=== PATIENT | female | born 1970 | race Hispanic/Latino ===

== ENCOUNTER 2020-03-09 05:03 | Inpatient (IN) | payer OTHER ==
[~2020-03-09] VITALS: Ht 165.1 cm; Wt 87.2 kg
[~2020-03-09 05:03] MED LIST: ASPIR-TRIN325 MG PO; GEMFIBROZIL600 MG PO; GLIPIZIDE ER10 MG PO; HYDRALAZINE HC100 MG PO; LEVAQUIN500 MG PO; LEXAPRO20 MG PO; LOSARTAN-HCTZ1 EAC1 PO; MELOXICAM15 MG PO; METFORMIN HCL500 M1 PO; NIFEDIAC CC90 MG PO; NORCO 10MG-325MG1 EA PO; PRAVASTATIN SOD40 MG PO; VESICARE5 MG PO
[2020-03-09] MEDS ORDERED: KETOROLAC TROMETHAMINE 30 MG/ML VIAL IV STA (05:45)
[2020-03-09] MEDS ORDERED: ONDANSETRON HCL INJ 2MG/ML 2ML 2 MG/ML VIAL IV STA ×2 (05:45→10:11)
[2020-03-09] MEDS ORDERED: SODIUM CHLORIDE FLUSH 10 ML SYR INJ PRN ×2 (05:45→12:30)
[2020-03-09] MEDS ORDERED: SODIUM CHLORIDE 0.9% 1000ML 1,000 ML IV STA (05:45)
[2020-03-09] MEDS ORDERED: SODIUM CHLORIDE 0.9% 1000ML 1,000 ML ONE (05:51)
--- NOTE | 2020-03-09 05:59 | Emergency Department Note ---
History of Present Illnes History of Present Illness Chief Complaint: increased bilateral lbp pain radiating to abdomen x1 day History of Present Illness This is a 49 year old female. was doing well until 1 month ago then intermittent blbp which became constant and worse 1 day ago. h/o kidney stones Historian: Patient Arrival Mode: Car History limited by: condition of the patient Scientific Publications Editor Required: No Onset (how long ago): day(s) (1) Location: blbp Quality: start Radiation: Reports abdomen Severity: severe Onset quality: gradual Duration (how long): day(s) (1) Timing of current episode: constant Progression: worsening Chronicity: new Context: Denies recent illness, Denies recent surgery, Denies recent immobilization, Denies recent travel, Denies trauma/injury, Denies new medications, Denies hx of DVT/PE Relieving factors: none Exacerbating factors: none Associated symptoms: Reports malaise Treatments prior to arrival: none (RANDEE FOOTE) Historian: Patient Arrival Mode: Car (CATRACHO LUKE MD) Past Medical/Family History Physician Review I have reviewed the patient's past medical and family history. Any updates have been documented here. (RANDEE FOOTE) Past Medical History Recent Fever: No Clinical Suspicion of Infectio: No New/Unexplained Change in Ment: No Past Medical History: Diabetes, Kidney Stones Past Surgical History: None Other Surgery: , SCAR TISSUE REMOVAL (RANDEE FOOTE) Recent Fever: No Clinical Suspicion of Infectio: No New/Unexplained Change in Ment: No Past Medical History: Hypertension, Diabetes (IDDM), Hyperlipedemia Other Medical History: Nephrolithiasis Other Surgery: Right Ovary removed, due to a cyst (CATRACHO LUKE MD) Social History Smoking Cessation: Current every day smoker Counseling Performed: No Alcohol Use: Occasional Any Illegal Drug Use: No (RANDEE FOOTE) Smoking Cessation: Current every day smoker Counseling Performed: Yes Alcohol Use: Occasional Any Illegal Drug Use: No TB Exposure/Symptoms: No Physically hurt or threatened: No (CATRACHO LUKE MD) Family History Family history of heart diseas: No (CATRACHO LUKE MD) Other Any Pre-Existing Lines (PICC,: No (RANEDE FOOTE) Last Tetanus: unknown Any Pre-Existing Lines (PICC,: No Is patient up to date on immun: No (CATRACHO LUKE MD) Review of Systems Review of Systems Constitutional: Reports no symptoms EENTM: Reports no symptoms Cardiovascular: Reports no symptoms Respiratory: Reports no symptoms Gastrointestinal: Reports as per HPI, Reports nausea Genitourinary: Reports no symptoms Musculoskeletal: Reports as per HPI Integumentary: Reports no symptoms Neurological: Reports no symptoms Psychological: Reports no symptoms Endocrine: Reports no symptoms Hematological/Lymphatic: Reports no symptoms Review of other systems: All other systems negative (RANDEE FOOTE) Physical Exam Related Data Allergies: Coded Allergies: Olbfagg-Emj-Unf Reductase Inhibitor (Verified Allergy, 11/24/12) Triage Vital Signs Vital Signs Date Time Temp Pulse Resp B/P (MAP) Pulse Ox O2 Delivery O2 Flow Rate FiO2 03/09/20 05:14 97.3 57 18 182/89 98 Room Air Vital signs reviewed: Yes (RANDEE FOOTE) Physical Exam CONSTITUTIONAL Constitutional: Present well-developed, Present well-nourished HENT HENT: Present normocephalic, Present atraumatic, Present oropharynx clear/moist, Present nose normal HENT L/R: Present left ext ear normal, Present right ext ear normal EYES Eyes: Reports PERRL, Reports conjunctivae normal NECK Neck: Present ROM normal, Present supple PULMONARY Pulmonary: Present effort normal, Present breath sounds normal CARDIOVASCULAR Cardiovascular: Present regular rhythm, Present heart sounds normal, Present capillary refill normal, Present normal rate GASTROINTESTINAL Abdominal: Present soft, Present nontender, Present bowel sounds normal GENITOURINARY Genitourinary: Present exam deferred SKIN Skin: Present warm, Present dry MUSCULOSKELETAL Musculoskeletal: Present ROM normal, Present other (bilateral cva tenderness) NEUROLOGICAL Neurological: Present alert, Present oriented x 3, Present no gross motor or sensory deficits PSYCHOLOGICAL Psychological: Present mood/affect normal, Present judgement normal (RANDEE FOOTE) Abdominal: Present tender (diffuse abdominal tenderness, worse in the left lower abdomen;) (CATRACHO LUKE MD) Results Laboratory Lab results reviewed: Yes Laboratory comments cbc normal except wbc 12.2, bmp pending, ct abd/pelvis will be done (RANDEE FOOTE) Laboratory UA - gluc = 500 mg/dl, blo - moderate, pro - 100 mg/dl UPT - negative CBC - WBC - 12.2, H/H = 18.3/48 BMP/Liver - unable to run due to Lipemic specimen; 4 samples have been run, and they are all lipemic Lab results reviewed: Yes (CATRACHO LUKE MD) Imaging Imaging results reviewed: Yes Impressions [facility] [address] [address] Patient Name: NEEL PRIETO MR #: [id number] : 1970 Age/Sex: 49/F Req #: [id number] Adm Physician: Ordered by: RANDEE FOOTE Report #: [id number] Location: [facility] Room/Bed: Procedure: [id number] HOPD/CT ABD/PEL WO CONTRAST-HOPD Exam Date: 03/09/20 Exam Time: 0656 REPORT STATUS: Signed EXAM: CT Abdomen and Pelvis WITHOUT contrast INDICATION: Abdominal/back pain COMPARISON: None. TECHNIQUE: Abdomen and pelvis were scanned utilizing a multidetector helical scanner from the lung base to the pubic symphysis without administration of IV contrast. Absence of intravenous contrast decreases sensitivity for detection of focal lesions and vascular pathology. Coronal and sagittal reformations were obtained. Routine protocol was performed. IV CONTRAST: None ORAL CONTRAST: None COMPLICATIONS: None RADIATION DOSE: Total DLP: 1082 mGy*cm Estimated effective dose: (DLP x 0.015 x size factor) mSv CTDIvol has been reviewed. It is below the limits set by the Radiation Protocol Committee (RPC). Dose modulation, iterative reconstruction, and/or weight based adjustment of the mA/kV was utilized to reduce the radiation dose to as low as reasonably achievable. FINDINGS: LINES and TUBES: None. LOWER THORAX: Coronary artery calcifications. HEPATOBILIARY: Enlarged hypodense liver. No focal hepatic lesions. No biliary ductal dilation. GALLBLADDER: No radio-opaque stones or sludge. No wall thickening. SPLEEN: No splenomegaly. PANCREAS: No focal masses or ductal dilatation. ADRENALS: No adrenal nodules KIDNEYS/URETERS: No hydronephrosis. No solid mass lesions. Round fluid density in the mid right kidney is likely a simple cyst. No stones. GI TRACT: No abnormal distention, wall thickening, or evidence of bowel obstruction. Appendix is normal. Colonic diverticuli. PELVIC ORGANS/BLADDER: Enlarged left ovary, measures up to 6.4 cm. Urinary bladder unremarkable. Suspect small uterine fibroid. LYMPH NODES: No lymphadenopathy. VESSELS: Minimal arterial calcifications. PERITONEUM / RETROPERITONEUM: No free air or fluid. BONES: Minimal degenerative changes. SOFT TISSUES: Unremarkable. IMPRESSION: 1. Left ovarian enlargement, recommend pelvic ultrasound. Suspect uterine fibroids. 2. Hepatomegaly with hepatic steatosis. 3. Colonic diverticulosis without diverticulitis. 4. Coronary artery calcifications. Signed by: Foster Kim DO on 03/09/2020 7:40 AM Dictated By: FOSTER KIM DO 9 Transcribed By: YAMILETH on 03/09/20739 COPY TO: RANDEE FOOTE~ [address] [place] [address] Patient Name: NEEL PRIETO MR #: [id number] : 1970 Age/Sex: 49/F Req #: [id number] Adm Physician: Ordered by: CATRACHO LUKE MD Report #: [id number] Location: [facility] Room/Bed: Procedure: [id number] HOPD/US HOPD PELVIC DOPPLER LTD Exam Date: 03/09/20 Exam Time: 933 REPORT STATUS: Signed ADDENDUM #1 Of note, there is no cyst or mass associated with the left ovary. Signed by: Dalton Singleton MD on 03/09/2020 11:19 AM ORIGINAL REPORT Exam: Pelvic ultrasound. History: Enlarged left ovary Comparison: CT abdomen and pelvis of 03/09/2020 Findings: Transabdominal and endovaginal sonographic evaluation of the pelvis. The uterus is anteverted in position, measuring 8.2 x 4.3 x 7.2 cm. Endometrial stripe thickness is 4 millimeters. The right ovary is not well-visualized due to overlying bowel gas.. The left ovary measures up to 3.8 x 4.6 x 3.5 cm. Arterial and venous Doppler flow is difficult to establish. No pelvic free fluid. Impression: Enlarged left ovary with no readily detectable arterial/venous waveforms. This may represent ovarian torsion in the proper clinical setting. The above findings were discussed with Dr. LUKE on 03/09/2020 9:58 AM, who responded indicating that the communication was understood. Signed by: Dalton Singleton MD on 03/09/2020 10:04 AM Dictated By: DALTON SINGLETON MD [id number] Transcribed By: YAMILETH on 03/09/20 1004 COPY TO: CATRACHO LUKE MD~ (CATRACHO LUKE MD) Diagnostics Tests Diagnostic test(s) reviewed: Yes (CATRACHO LUKE MD) Assessment & Plan Medical Decision Making MDM signed out to dr luke (RANDEE FOOTE) MDM 08:00 am - CT scan of abd/pelvis - left ovarian enlargement, recommend pelvic USG is main findin. NO kidney stones. Pt with low back pain, radiating to both sides of the abdomen. Diffuse abdominal ttp. Plan to order a pelvic USG w/doppler to better evaluate the left ovary. Reviewed CT scan with radiologist and there are no fractures of the lumbar spine. Will try a muscle relaxant to see if it helps with her back pain, pending the pelvic USG. Updated patient and son, by phone. 10:15 - contacted by Radiology of the lack of blood flow to the left ovary, which raises concern for torsion. Will consult [facility]. Discussed with patient that this will likley require surgery. She does not have an rat culturist. 10:30 am - case discussed with Pneumatic Tube Repairer, Dr. Lou, who requested more clarification of the ovary by Radiology. We have contacted Radiologist, who is in a procedure. Awaiting call back 11:20 - Spoke with Radioligist who read the USG, and the "ovary is homogenous," with no masses or cysts. The size, is as stated. 11:25 - discussed with Dr. Mario Lou, and he is coming to the [facility] to examine the patient. 11:50 - Dr. Lou is here to examine patient 12:15 pm - Dr. Lou examined patient and performed bedside USG. The left ovary is @ 5 cm, with no cysts or masses. He is not certain that her pain is due to possible ovarian torsion. Recommend admission to the hospital for further evalu ation and close observation. Pt does have a history of kidney stones, but no stones were seen on CT abd/pelvis. She has also had a midline , which would could cause adhesions. 12:30 pm - case discussed with Dr. Bach who is agreeable to admission. He will hold off on surgical consultation, until he can evaluate. Pt is medically stable for transfer to [facility] via ambulance. (CATRACHO LUKE MD) Assessment & Plan Final Impression: (1) Acute low back pain (RANDEE FOOTE) Final Impression: (1) Abdominal pain (2) Low back pain (3) Hypertension (4) Uncontrolled diabetes mellitus (CATRACHO LUKE MD) Depart Disposition: ADMITTED (transferring to [facility]) Last Vital Signs Date Time Temp Pulse Resp B/P (MAP) Pulse Ox O2 Delivery O2 Flow Rate FiO2 03/09/20 05:14 97.3 57 18 182/89 98 Room Air (RANDEE FOOTE) Home Meds Reported Medications Insulin Regular, Human (HUMULIN R) 100 Unit/1 Ml Vial, 30 DINNER 03/09/20 Insulin Regular, Human (HUMULIN R) 100 Unit/1 Ml Vial, 20 ACL 03/09/20 Insulin Regular, Human (HUMULIN R) 100 Unit/1 Ml Vial, 15 AM 03/09/20 Fenofibrate Nanocrystallized (FENOFIBRATE) 145 Mg Tablet, 134 03/09/20 Amlodipine/Atorvastatin (AMLODIPINE-ATORVAST 5-10 MG) 1 Each Tablet, 5 03/09/20 Valsartan/Hydrochlorothiazide (Valsartan-Hctz 160-12.5 mg Tab) 1 Each Tablet 03/09/20 Insulin Degludec (Tresiba Flextouch U-100) 100 Unit/1 Ml Insuln.pen, 80 DAILY 03/09/20 Escitalopram Oxalate (LEXAPRO) 20 Mg Tablet, 20 MG PO DAILY 11/24/12 Aspirin (ASPIR-JAS) 325 Mg Tablet.dr, 325 MG PO DAILY 11/24/12 Losartan/Hydrochlorothiazide (LOSARTAN-HCTZ 100-25 MG TAB) 1 Each Tablet, 1 TAB PO DAILY 11/24/12 Discontinued Reported Medications Solifenacin Succinate (VESICARE) 5 Mg Tablet, 5 MG PO QAM 11/26/12 Levofloxacin (LEVAQUIN) 500 Mg Tablet, 500 MG PO DAILY 11/26/12 Acetaminophen/Hydrocodone* (NORCO 10MG-325MG*) 1 Ea Tab, 1 TAB PO Q4 PRN 11/26/12 Metformin Hcl (METFORMIN HCL ER) 500 Mg Tab.er.24h, 1500 MG PO HS 11/24/12 Metformin Hcl (METFORMIN HCL ER) 500 Mg Tab.er.24h, 1000 MG PO DAILY 11/24/12 Hydralazine Hcl (HYDRALAZINE HCL) 100 Mg Tablet, 100 MG PO DAILY 11/24/12 Gemfibrozil (GEMFIBROZIL) 600 Mg Tablet, 600 MG PO DAILY 11/24/12 Nifedipine (NIFEDIAC CC) 90 Mg Tablet.er, 90 MG PO DAILY 11/24/12 Glipizide (GLIPIZIDE ER) 10 Mg Tab.er.24, 10 MG PO DAILY 11/24/12 Meloxicam (MELOXICAM) 15 Mg Tablet, 15 MG PO DAILY 11/24/12 Pravastatin Sodium (PRAVASTATIN SODIUM) 40 Mg Tablet, 40 MG PO DAILY 11/24/12 RANDEE FOOTE Mar 09, 2020 05:59 CATRACHO LUKE MD Mar 09, 2020 08:10
[2020-03-09] MEDS ORDERED: SODIUM CHLORIDE 0.9% 50ML 0 ML ONE (06:14)
[2020-03-09] MEDS ORDERED: IOPAMIDOL 370 MG/ML 200 ML INFUS..BTL INJ ONE (06:14)
[2020-03-09] MEDS ORDERED: MORPHINE SULFATE INJ 4 MG/ML INJ 1ML IV STA (06:24)
[2020-03-09] MEDS ORDERED: MORPHINE SULFATE INJ 4 MG/ML INJ 1ML ONE ×2 (06:31→10:32)
[2020-03-09] MEDS ORDERED: FENOFIBRATE145 MG PO (07:02)
[2020-03-09] MEDS ORDERED: TRESIBA FL100 UNIT/1 (07:02)
[2020-03-09] MEDS ORDERED: AMLODIPINE-ATO1 EACH (07:02)
[2020-03-09] MEDS ORDERED: VALSARTAN-HCTZ1 EAC1 (07:02)
[2020-03-09] MEDS ORDERED: HUMULIN R100 UNIT/2 SQ ×3 (07:02)
--- NOTE | 2020-03-09 07:43 | Diagnostic Imaging Report ---
EXAM: CT Abdomen and Pelvis WITHOUT contrast INDICATION: Abdominal/back pain COMPARISON: None. TECHNIQUE: Abdomen and pelvis were scanned utilizing a multidetector helical scanner from the lung base to the pubic symphysis without administration of IV contrast. Absence of intravenous contrast decreases sensitivity for detection of focal lesions and vascular pathology. Coronal and sagittal reformations were obtained. Routine protocol was performed. IV CONTRAST: None ORAL CONTRAST: None COMPLICATIONS: None RADIATION DOSE: Total DLP: 1082 mGy*cm Estimated effective dose: (DLP x 0.015 x size factor) mSv CTDIvol has been reviewed. It is below the limits set by the Radiation Protocol Committee (RPC). Dose modulation, iterative reconstruction, and/or weight based adjustment of the mA/kV was utilized to reduce the radiation dose to as low as reasonably achievable. FINDINGS: LINES and TUBES: None. LOWER THORAX: Coronary artery calcifications. HEPATOBILIARY: Enlarged hypodense liver. No focal hepatic lesions. No biliary ductal dilation. GALLBLADDER: No radio-opaque stones or sludge. No wall thickening. SPLEEN: No splenomegaly. PANCREAS: No focal masses or ductal dilatation. ADRENALS: No adrenal nodules KIDNEYS/URETERS: No hydronephrosis. No solid mass lesions. Round fluid density in the mid right kidney is likely a simple cyst. No stones. GI TRACT: No abnormal distention, wall thickening, or evidence of bowel obstruction. Appendix is normal. Colonic diverticuli. PELVIC ORGANS/BLADDER: Enlarged left ovary, measures up to 6.4 cm. Urinary bladder unremarkable. Suspect small uterine fibroid. LYMPH NODES: No lymphadenopathy. VESSELS: Minimal arterial calcifications. PERITONEUM / RETROPERITONEUM: No free air or fluid. BONES: Minimal degenerative changes. SOFT TISSUES: Unremarkable. IMPRESSION: 1. Left ovarian enlargement, recommend pelvic ultrasound. Suspect uterine fibroids. 2. Hepatomegaly with hepatic steatosis. 3. Colonic diverticulosis without diverticulitis. 4. Coronary artery calcifications. Signed by: Foster Kim DO on 03/09/2020 7:40 AM
[2020-03-09] MEDS ORDERED: DIAZEPAM INJ 5 MG/ML 2 ML IM ONE (08:15)
[2020-03-09] MEDS ORDERED: DIAZEPAM INJ 5 MG/ML 2 ML ONE (08:47)
--- NOTE | 2020-03-09 08:52 | NUR ---
us at bedside
--- NOTE | 2020-03-09 10:07 | Diagnostic Imaging Report ---
ADDENDUM #1 Of note, there is no cyst or mass associated with the left ovary. Signed by: Bettie Yang MD on 03/09/2020 11:19 AM ORIGINAL REPORT Exam: Pelvic ultrasound. History: Enlarged left ovary Comparison: CT abdomen and pelvis of 03/09/2020 Findings: Transabdominal and endovaginal sonographic evaluation of the pelvis. The uterus is anteverted in position, measuring 8.2 x 4.3 x 7.2 cm. Endometrial stripe thickness is 4 millimeters. The right ovary is not well-visualized due to overlying bowel gas.. The left ovary measures up to 3.8 x 4.6 x 3.5 cm. Arterial and venous Doppler flow is difficult to establish. No pelvic free fluid. Impression: Enlarged left ovary with no readily detectable arterial/venous waveforms. This may represent ovarian torsion in the proper clinical setting. The above findings were discussed with Dr. HOLLY on 03/09/2020 9:58 AM, who responded indicating that the communication was understood. Signed by: Bettie Yang MD on 03/09/2020 10:04 AM
[2020-03-09] MEDS ORDERED: MORPHINE SULFATE 2 MG/ML SYR 1ML IV STA (10:11)
--- NOTE | 2020-03-09 10:35 | NUR ---
blood redrawn and reran per MD request.
--- NOTE | 2020-03-09 11:27 | NUR ---
pt moved to room 5 for pelvic exam [address] Lou
--- NOTE | 2020-03-09 11:58 | NUR ---
ASSISTED DR KENNEDY WITH PELVIC EXAM. PT TOLORATED WELL.
[2020-03-09 13:20] VITALS: BP 194/93
[2020-03-09 13:41] VITALS: BP 194/93
[2020-03-09] MEDS ORDERED: TRESIBA100 UNIT/1 SQ (13:58)
[2020-03-09] MEDS ORDERED: AMLODIPINE BESYL5 MG PO (13:58)
[2020-03-09] MEDS ORDERED: VALSARTAN-HCTZ1 EAC2 PO (13:58)
[2020-03-09] MEDS ORDERED: OMEGA 3 FISH O1 EACH PO (13:58)
--- NOTE | 2020-03-09 14:01 | Consultation ---
DATE OF CONSULTATION: 03/09/2020 BACK UP SCAN COORDINATOR Consultation REASON FOR CONSULTATION: The patient is a 49-year-old 2, para 1-0-1-1 with last menstrual period March 03, 2020, on no contraception, but with a negative ECG, who presents with a 2-day history of abdominal pain, which got worse. She also fell about a month ago and hurt her back, and did not get that looked at and still has pain from that. She reports nausea and vomiting last night, but not currently. She also denies diarrhea or anorexia. She is hungry. She has not eaten. She does have a history of renal stones, which have caused similar pain in the past. PAST MEDICAL HISTORY: She has history of renal stone. She has also had hypertension for 4 to 5 years and diabetes for 4 to 5 years. She is on insulin and pills. ALLERGIES: SHE IS ONLY ALLERGIC TO DARVOCET. CURRENT MEDICATIONS: Amlodipine, aspirin, Lexapro, Tresiba, insulin R, and either losartan/hydrochlorothiazide or valsartan/hydrochlorothiazide. She admits that she is not compliant with her medications. PAST SURGICAL HISTORY: Remarkable for x1, 29 years ago and for right oophorectomy 10 years ago for a tumor. It was benign, but as large as a baby, she stated. FAMILY HISTORY: Remarkable for her mother with diabetes. She at age 87. OB HISTORY: She had a 29 years ago with delivery of a 7 pounds 5-ounce male done for non-reassuring heart tones. PHYSICAL EXAMINATION: VITAL SIGNS: The patient's height is 65 inches. Her weight is 190 pounds. Temperature 97.3, blood pressure 182/89, pulse 87, respirations 18, and O2 saturations 98%. ABDOMEN: Has diffuse tenderness, left greater than right. She has minimal rebound tenderness. Bowel sounds are within normal limits, not hyperactive. She has both right and left mild CVA tenderness. PELVIC: Vulva within normal limits. Vagina, normal irrigation with dark blood secondary to being on her menses. Cervix is nulliparous without lesions. Uterus is normal size, anteverted with no cervical motion tenderness. Adnexa, right, nontender, no masses; left, minimal tenderness with slightly enlarged ovary. The uterus is not mobile. LABORATORY VALUES: Unavailable because her blood is very lipemic. IMPRESSION: Abdominal pain, not responding to conservative therapy. Torsion is a possibility, but in view of the lack of a cyst on the ovary at this time and the absence of a 5 cm ovarian mass, torsion is unlikely, although this could certainly be early signs of it. Would only consider that if her pain worsens and localizes more to the left lower quadrant. Also consider kidney stones and also residual pain from her accident one month ago. We will continue to follow and keep her watch if her left lower quadrant pain worsens, we can emergently take her to the operating room. Just note CT scan suggested enlarged left ovary, but does not state that the cyst is present. The bladder is unremarkable and a small uterine fibroid is suspected. No evidence of appendicitis on CT scan. Ultrasound shows a uterus which is slightly enlarged, 8.2 x 7.2 x 4.3 with thin endometrium of only 4 mm. Right ovary not visualized because of surgically absent. Left ovary measured 3.8 x 4.6 x 3.5 cm. Doppler flow could not be seen, but has not ruled out. Consider torsion pending clinical presentation. In view of this finding, torsion has a slight possibility, but it is not the most likely diagnosis in her situation. Recommend hospitalization and continue to observe her abdominal pain patterns and Surgical consult as well. MD NEELIMA Clarke/HÉCTORL /[id number]
[2020-03-09] MEDS: SODIUM CHLORIDE 0.9% 1000ML 1,000 ML IV SCH ×2 (14:15→22:24)
[2020-03-09] MEDS: ONDANSETRON HCL INJ 2MG/ML 2ML 2 MG/ML VIAL IV PRN ×3 (14:15→22:20)
[2020-03-09] MEDS: HYDROMORPHONE 1MG/1ML INJ IV PRN ×3 (14:15→22:20)
[2020-03-09 14:25] VITALS: BP 194/93
[2020-03-09 14:29] LABS: HEMOGLOBIN 15.8 g/dL (12.0-16.0); LYMPHOCYTES % 10.8 % (18.0-39.1); MEAN CORPUSCULAR HEMOGLOBIN 31.4 pg (28-32); MEAN CORPUSCULAR HGB CONC 35.1 g/dL (31-35); MEAN CORPUSCULAR VOLUME 89.5 fL (81-99); NEUTROPHILS % 79.7 % (38.7-80.0); PLATELET COUNT 249 x10e3/uL (140-360); RED BLOOD COUNT 5.03 x10e6/uL (3.6-5.1); RED CELL DISTRIBUTION WIDTH 12.9 % (11.7-14.4)
[2020-03-09 14:30] LABS: BASOPHILS # (AUTO) 0.1 (0.0-0.1); BASOPHILS % 0.5 % (0.0-1.0); EOSINOPHILS # (AUTO) 0.2 (0.0-0.4); EOSINOPHILS % 1.4 % (0.0-6.0); LYMPHOCYTES # (AUTO) 1.4 (1.0-3.2); MONOCYTES # (AUTO) 0.9 (0.2-0.8); NEUTROPHILS # (AUTO) 10.4 (2.1-6.9)
[2020-03-09] MEDS ORDERED: DEXTROSE 50% SYRINGE 50 ML IV PRN (14:30)
[2020-03-09 14:50] LABS: ALANINE AMINOTRANSFERASE 48 IU/L (0-55); ALBUMIN 3.5 g/dL (3.5-5.0); ALBUMIN/GLOBULIN RATIO 0.8 (0.8-2.0); ALKALINE PHOSPHATASE 78 IU/L (40-150); ANION GAP 18.7 mmol/L (8-16); BLOOD UREA NITROGEN 7 mg/dL (7-26); BUN/CREATININE RATIO 11 (6-25); CALCIUM 9.2 mg/dL (8.4-10.2); CARBON DIOXIDE 18 mmol/L (22-29); CHLORIDE 98 mmol/L (98-107); CREATININE, SERUM 0.63 mg/dL (0.57-1.11); EST GLOMERULAR FILTRATION RATE > 60 ML/MIN (60-); GLUCOSE 295 mg/dL (74-118); POTASSIUM 3.7 mmol/L (3.5-5.1); SODIUM 131 mmol/L (136-145)
[2020-03-09 14:51] LABS: ALANINE AMINOTRANSFERASE 49 IU/L (0-55); ALBUMIN 3.5 g/dL (3.5-5.0); ALKALINE PHOSPHATASE 81 IU/L (40-150); BILIRUBIN,DIRECT < 0.1 mg/dL (0.0-0.5)
--- NOTE | 2020-03-09 15:00 | NUR ---
CALLED AND SPOKE WITH DR. KENNEDY REGARDING CONSULT. NEW ORDER FOR US DOPPLER ON THE LEFT OVARY. CALLED AND SPOKE WITH INDUSTRIAL/ORGANIZATIONAL PSYCHOLOGIST- INFORMED PATIENT DOES NOT HAVE A RIGHT OVARY.
[2020-03-09] MEDS: HYDRALAZINE HCL 20 MG/ML VIAL IV PRN (15:11)
[2020-03-09 15:37] VITALS: BP 158/84
[2020-03-09] MEDS: INSULIN REGULAR, HUMAN 100 UNIT/1 ML 3ML VIAL SQ SCH ×2 (16:04→21:40)
--- NOTE | 2020-03-09 19:05 | NUR ---
PATIENT IS IN STABLE CONDITION WITH NO S/S OF RESPIRATORY DISTRESS. PATIENT RECEIVED PAIN MEDICATION AT 1820. IV FLUIDS INFUSING. BED ALARM APPLIED. CALL LIGHT IS WITHIN REACH, PATIENT INSTRUCTED TO CALL FOR ASSISTANCE NEEDED. REPORT GIVEN TO ONCOMING NURSE.
[2020-03-09 20:00] VITALS: BP 160/86
[2020-03-09 21:40] VITALS: BP 160/86
--- NOTE | 2020-03-09 21:40 | NUR ---
PATIENT IN STABLE CONDITION, NO SIGNS OF RESPIRATORY DISTRESS NOTED. IV FLUIDS ARE RUNNING AT ORDERED RATE AND PATIENT VOICES PAIN AT A LEVEL OF 8 AND WAS PREVIOUSLY MEDICATED ORDERED. BED IS IN LOWEST POSITION, BOTH SIDE RAILS ARE UP, CALL LIGHT IS WITHIN EASY REACH, WILL CONTINUE TO MONITOR.
[2020-03-10] VITALS (9 sets, daily range): BP systolic 135–177; BP diastolic 74–96
[2020-03-10] MEDS: HYDROMORPHONE 1MG/1ML INJ IV PRN ×5 (02:20→19:55)
[2020-03-10] MEDS: ONDANSETRON HCL INJ 2MG/ML 2ML 2 MG/ML VIAL IV PRN ×4 (02:20→15:29)
[2020-03-10 06:09] LABS: BASOPHILS # (AUTO) 0.1 (0.0-0.1); BASOPHILS % 0.7 % (0.0-1.0); EOSINOPHILS # (AUTO) 0.1 (0.0-0.4); EOSINOPHILS % 0.7 % (0.0-6.0); HEMATOCRIT 44.9 % (34.2-44.1); HEMOGLOBIN 15.4 g/dL (12.0-16.0); LYMPHOCYTES # (AUTO) 1.5 (1.0-3.2); LYMPHOCYTES % 9.8 % (18.0-39.1); MEAN CORPUSCULAR HEMOGLOBIN 31.7 pg (28-32); MEAN CORPUSCULAR HGB CONC 34.3 g/dL (31-35); MEAN CORPUSCULAR VOLUME 92.4 fL (81-99); MONOCYTES # (AUTO) 0.9 (0.2-0.8); MONOCYTES % 6.2 % (4.4-11.3); NEUTROPHILS # (AUTO) 12.1 (2.1-6.9); NEUTROPHILS % 82.1 % (38.7-80.0); PLATELET COUNT 237 x10e3/uL (140-360); RED BLOOD COUNT 4.86 x10e6/uL (3.6-5.1); RED CELL DISTRIBUTION WIDTH 13.2 % (11.7-14.4)
[2020-03-10] MEDS: SODIUM CHLORIDE 0.9% 1000ML 1,000 ML IV SCH ×3 (06:21→21:18)
[2020-03-10 06:24] LABS: ANION GAP 13.3 mmol/L (8-16); BLOOD UREA NITROGEN 7 mg/dL (7-26); BUN/CREATININE RATIO 12 (6-25); CALCIUM 8.6 mg/dL (8.4-10.2); CARBON DIOXIDE 23 mmol/L (22-29); CHLORIDE 101 mmol/L (98-107); CREATININE, SERUM 0.58 mg/dL (0.57-1.11); EST GLOMERULAR FILTRATION RATE > 60 ML/MIN (60-); GLUCOSE 216 mg/dL (74-118); POTASSIUM 3.3 mmol/L (3.5-5.1); SODIUM 134 mmol/L (136-145)
[2020-03-10 06:49] LABS: CHOL/HDL RATIO 9.6 (3.0-3.6); CHOLESTEROL 249 MD/DL (0-199); HDL CHOLESTEROL 26 MG/DL (40-60); LIPASE 85 U/L (8-78); MAGNESIUM 1.5 MG/DL (1.3-2.1); PHOSPHORUS 2.7 MG/DL (2.3-4.7); TRIGLYCERIDES 870 MG/DL (0-149)
[2020-03-10 07:02] LABS: THYROID STIMULATING HORMONE 1.503 uIU/mL (0.350-4.940)
--- NOTE | 2020-03-10 07:10 | NUR ---
RCD PT AT BED PT IS ALERT AND ORIENTED IV PATENT BY SALINE FLUSH BED LOW AND LOCKED CALL LIGHT IN REACH
[2020-03-10] MEDS: INSULIN REGULAR, HUMAN 100 UNIT/1 ML 3ML VIAL SQ SCH ×4 (07:30→21:42)
[2020-03-10] MEDS: FAMOTIDINE 20 MG/2 ML VIAL IV SCH ×2 (09:00→17:00)
[2020-03-10] MEDS ORDERED: NON-FORMULARY MEDICATION (Losartan/Hydrochlorothiazide (Losartan-Hctz 100-25 Mg Tab) 1 TAB PO SCH (09:00)
[2020-03-10] MEDS: OMEGA 3 POLYUNSAT FATTY ACIDS 1000 MG SOFTGEL PO SCH (09:00)
[2020-03-10] MEDS: VALSARTAN 160 MG TAB PO SCH (09:00)
[2020-03-10] MEDS: AMLODIPINE BESYLATE 5 MG TAB PO SCH (09:00)
[2020-03-10] MEDS: ESCITALOPRAM OXALATE 10 MG TAB PO SCH (09:00)
[2020-03-10] MEDS: HYDROCHLOROTHIAZIDE 25 MG TAB PO SCH (09:00)
--- NOTE | 2020-03-10 09:13 | Diagnostic Imaging Report ---
Exam: Pelvic ultrasound. History: Pelvic pain Comparison: CT abdomen and pelvis of 03/09/2020, Pelvic ultrasound of earlier the same day. Findings: Transabdominal and endovaginal sonographic evaluation of the pelvis. The uterus is anteverted in position, measuring 7.9 x 4.0 x 4.7cm. Endometrial stripe thickness is 2 millimeters. Small uterine fibroids measure up to 1.8cm. Reported history of right oophorectomy. The left ovary measures up to 4.4 x 3.6 x 5.0cm. Arterial and venous Doppler flow is difficult to establish. No pelvic free fluid. Impression: Enlarged left ovary without readily detectable arterial/venous waveforms. Although there is no cyst or mass present, torsion cannot be excluded by imaging. Signed by: Bettie Yang MD on 03/10/2020 9:09 AM
[2020-03-10] MEDS ORDERED: MAGNESIUM SULFATE 2GM/50ML 50 ML IV ONE (11:00)
--- NOTE | 2020-03-10 14:13 | NUR ---
TALKED TO SON THE UPDATE
[2020-03-10] MEDS: PANTOPRAZOLE 40 MG 10ML VIAL IV SCH (15:00)
[2020-03-10] MEDS: PIPER-TAZ 3.375 GM 50 ML IV SCH ×2 (15:00→21:06)
[2020-03-10] MEDS: METRONIDAZOLE 500MG/NS 100ML 100 ML IV SCH (17:22)
--- NOTE | 2020-03-10 18:44 | NUR ---
PT RESTING ON BED BED SIDE REPORT GIVEN TO ONCOMING NURSE
--- NOTE | 2020-03-10 19:15 | NUR ---
Patient received sitting up in bed. AAO x 4. Patient had no complaints of pain. Respirations even and non-labored. Safety measures in place. NS infusing at 125 cc/hr. patient instructed to call for assistance when needed. Call light within reach.
--- NOTE | 2020-03-10 23:30 | NUR ---
IV on left arm infiltrated. Old IV removed with tip intact. New IV inserted in left hand 20G. Patient tolerated well.
[2020-03-11] VITALS (8 sets, daily range): BP systolic 118–168; BP diastolic 74–86
[2020-03-11] MEDS: KCL 20MEQ/.9 SOD CHL 1,000 ML IV SCH ×3 (01:45→18:30)
[2020-03-11] MEDS: METRONIDAZOLE 500MG/NS 100ML 100 ML IV SCH ×4 (01:47→18:32)
[2020-03-11] MEDS: HYDROMORPHONE 1MG/1ML INJ IV PRN ×5 (02:09→20:25)
[2020-03-11] MEDS: PIPER-TAZ 3.375 GM 50 ML IV SCH ×4 (03:22→22:03)
[2020-03-11 05:46] LABS: BASOPHILS # (AUTO) 0.1 (0.0-0.1); BASOPHILS % 0.7 % (0.0-1.0); EOSINOPHILS # (AUTO) 0.3 (0.0-0.4); EOSINOPHILS % 3.2 % (0.0-6.0); HEMATOCRIT 42.1 % (34.2-44.1); HEMOGLOBIN 13.7 g/dL (12.0-16.0); LYMPHOCYTES # (AUTO) 1.6 (1.0-3.2); LYMPHOCYTES % 17.9 % (18.0-39.1); MEAN CORPUSCULAR HEMOGLOBIN 30.2 pg (28-32); MEAN CORPUSCULAR HGB CONC 32.5 g/dL (31-35); MEAN CORPUSCULAR VOLUME 92.7 fL (81-99); MONOCYTES # (AUTO) 0.7 (0.2-0.8); MONOCYTES % 7.4 % (4.4-11.3); NEUTROPHILS # (AUTO) 6.4 (2.1-6.9); NEUTROPHILS % 70.2 % (38.7-80.0); PLATELET COUNT 245 x10e3/uL (140-360); RED BLOOD COUNT 4.54 x10e6/uL (3.6-5.1); RED CELL DISTRIBUTION WIDTH 13.5 % (11.7-14.4)
[2020-03-11 05:57] LABS: ALANINE AMINOTRANSFERASE 41 IU/L (0-55); ALBUMIN 2.8 g/dL (3.5-5.0); ALBUMIN/GLOBULIN RATIO 0.7 (0.8-2.0); ALKALINE PHOSPHATASE 65 IU/L (40-150); ANION GAP 13.3 mmol/L (8-16); BLOOD UREA NITROGEN 8 mg/dL (7-26); BUN/CREATININE RATIO 15 (6-25); CALCIUM 8.3 mg/dL (8.4-10.2); CARBON DIOXIDE 25 mmol/L (22-29); CHLORIDE 103 mmol/L (98-107); CREATININE, SERUM 0.55 mg/dL (0.57-1.11); EST GLOMERULAR FILTRATION RATE > 60 ML/MIN (60-); GLUCOSE 167 mg/dL (74-118); POTASSIUM 3.3 mmol/L (3.5-5.1); SODIUM 138 mmol/L (136-145)
[2020-03-11] MEDS: INSULIN REGULAR, HUMAN 100 UNIT/1 ML 3ML VIAL SQ SCH ×4 (07:30→20:05)
[2020-03-11] MEDS: FAMOTIDINE 20 MG/2 ML VIAL IV SCH ×2 (08:56→17:38)
[2020-03-11] MEDS: OMEGA 3 POLYUNSAT FATTY ACIDS 1000 MG SOFTGEL PO SCH (09:00)
[2020-03-11] MEDS: VALSARTAN 160 MG TAB PO SCH (09:00)
[2020-03-11] MEDS: AMLODIPINE BESYLATE 5 MG TAB PO SCH (09:00)
[2020-03-11] MEDS: HYDROCHLOROTHIAZIDE 25 MG TAB PO SCH (09:00)
[2020-03-11] MEDS: ESCITALOPRAM OXALATE 10 MG TAB PO SCH (09:00)
[2020-03-11] MEDS: PANTOPRAZOLE 40 MG 10ML VIAL IV SCH (17:54)
[2020-03-11] MEDS: ONDANSETRON HCL INJ 2MG/ML 2ML 2 MG/ML VIAL IV PRN (20:32)
[2020-03-12] MEDS: METRONIDAZOLE 500MG/NS 100ML 100 ML IV SCH ×4 (00:25→19:16)
[2020-03-12] MEDS: HYDROMORPHONE 1MG/1ML INJ IV PRN ×4 (00:28→20:07)
--- NOTE | 2020-03-12 01:38 | Progress Note ---
DATE: 03/11/2020 CONSULTING PHYSICIANS: 1. Mario Lou MD. 2. Miguel Angel Cox MD, with Surgery. SUBJECTIVE: The patient is lying supine in bed. States that she has less abdominal pain today. Left lower quadrant tenderness is improving. She is hungry. OBJECTIVE: VITAL SIGNS: Temperature 98.1, heart rate 73, respirations 16, blood pressure 128/75, oxygen saturation 100%. GENERAL: Awake, alert. LUNGS: Clear to auscultation. HEENT: EOMI. NECK: Supple. CARDIOVASCULAR: Regular rate and rhythm. No murmur. ABDOMEN: Bowel sounds positive. Soft. Mild abdominal tenderness, left lower quadrant. No guarding. EXTREMITIES: Without pitting edema. No clubbing, cyanosis, or marked swelling, signs and symptoms of DVT. NEUROLOGICAL: GCS 15. Nonfocal. LABORATORY DATA: Sodium 138, potassium 3.3, chloride 103, CO2 25, BUN 8, creatinine 0.55, estimated GFR greater than 60, glucose 167. Fingerstick blood glucose levels 153, 154, 184, 152. Calcium 8.3, total bilirubin 0.6, AST 35, ALT 41, alkaline phosphatase 65, total protein 6.6, albumin 2.8. WBCs 9.06, hemoglobin 13.7, hematocrit 42.1, platelets 245. On 03/09, Coronavirus not detected. No new imaging results. ASSESSMENT/PLAN: 1. Acute diffuse abdominal pain. Continue pain control. The patient requested second opinion on AIRLINE RADIO OPERATOR, Dr. Lou has signed off the case. Surgeon has seen and evaluated the patient today, states epigastric and left lower quadrant tenderness are better and likely diverticulitis. Repeat CT tomorrow. Continue IV Flagyl and IV Zosyn. 2. Uncontrolled hypertension, likely due to control pain. Continue Diovan, hydrochlorothiazide, and Norvasc. 3. Uncontrolled type 2 diabetes mellitus. Hemoglobin A1c 10.4%. Remains n.p.o. for now. Continue sliding scale insulin. 4. Acute hypokalemia. Potassium level 3.3 (3.3). Reassess in a.m. 5. Acute hypomagnesemia. Magnesium level 1.5 on 03/10, status post 2 g magnesium sulfate IV once. Reassess magnesium level in the morning. 6. Obesity with BMI of 30.78. Dietary restriction. 7. Hyperlipidemia. N.p.o. for now. 8. Prophylaxis. Pepcid. Time spent 35 minutes. Billing code [id number]. Dictated by Armando Izaguirre, PUBLIC INFORMATION COORDINATOR MD GIN Ceja/HÉCTORL /[id number]
[2020-03-12] MEDS: PIPER-TAZ 3.375 GM 50 ML IV SCH ×4 (03:23→21:45)
[2020-03-12 04:00] VITALS: BP 162/86
[2020-03-12] MEDS: HYDRALAZINE HCL 20 MG/ML VIAL IV PRN (05:00)
[2020-03-12] MEDS: KCL 20MEQ/.9 SOD CHL 1,000 ML IV SCH ×2 (05:00→06:09)
[2020-03-12 05:43] LABS: BASOPHILS % 0.6 % (0.0-1.0); EOSINOPHILS # (AUTO) 0.3 (0.0-0.4); EOSINOPHILS % 4.9 % (0.0-6.0); HEMATOCRIT 41.3 % (34.2-44.1); HEMOGLOBIN 13.4 g/dL (12.0-16.0); LYMPHOCYTES # (AUTO) 1.7 (1.0-3.2); LYMPHOCYTES % 25.7 % (18.0-39.1); MEAN CORPUSCULAR HEMOGLOBIN 30.3 pg (28-32); MEAN CORPUSCULAR HGB CONC 32.4 g/dL (31-35); MEAN CORPUSCULAR VOLUME 93.4 fL (81-99); MONOCYTES # (AUTO) 0.6 (0.2-0.8); MONOCYTES % 8.6 % (4.4-11.3); NEUTROPHILS # (AUTO) 3.9 (2.1-6.9); NEUTROPHILS % 59.6 % (38.7-80.0); PLATELET COUNT 245 x10e3/uL (140-360); RED BLOOD COUNT 4.42 x10e6/uL (3.6-5.1); RED CELL DISTRIBUTION WIDTH 13.2 % (11.7-14.4)
[2020-03-12 06:25] LABS: ALANINE AMINOTRANSFERASE 56 IU/L (0-55); ALBUMIN 2.9 g/dL (3.5-5.0); ALBUMIN/GLOBULIN RATIO 0.8 (0.8-2.0); ALKALINE PHOSPHATASE 64 IU/L (40-150); ANION GAP 12.5 mmol/L (8-16); BLOOD UREA NITROGEN 8 mg/dL (7-26); BUN/CREATININE RATIO 16 (6-25); CALCIUM 8.6 mg/dL (8.4-10.2); CARBON DIOXIDE 25 mmol/L (22-29); CHLORIDE 107 mmol/L (98-107); CREATININE, SERUM 0.51 mg/dL (0.57-1.11); EST GLOMERULAR FILTRATION RATE > 60 ML/MIN (60-); GLUCOSE 128 mg/dL (74-118); POTASSIUM 3.5 mmol/L (3.5-5.1); SODIUM 141 mmol/L (136-145)
[2020-03-12] MEDS ORDERED: DIATRIZOATE MEGL/DIATRIZOA SOD 30 ML BTL PO ONE (06:40)
[2020-03-12 06:47] LABS: MAGNESIUM 1.6 MG/DL (1.3-2.1); PHOSPHORUS 2.5 MG/DL (2.3-4.7)
[2020-03-12] MEDS: INSULIN REGULAR, HUMAN 100 UNIT/1 ML 3ML VIAL SQ SCH ×4 (07:30→22:07)
[2020-03-12] MEDS ORDERED: SODIUM CHLORIDE 0.9% 50ML 50 ML ONE (07:41)
[2020-03-12] MEDS ORDERED: IOPAMIDOL 370 MG/ML 200 ML INFUS..BTL INJ ONE (07:42)
[2020-03-12 08:10] VITALS: BP 152/90
[2020-03-12] MEDS: FAMOTIDINE 20 MG/2 ML VIAL IV SCH ×2 (08:36→18:17)
--- NOTE | 2020-03-12 08:49 | Diagnostic Imaging Report ---
EXAMINATION: CT of the abdomen and pelvis with contrast. TECHNIQUE: Spiral CT images of the abdomen and pelvis were performed from the lung bases to the lesser trochanters after the intravenous administration of 100 cc of Isovue 370. Oral Gastrografin was also administered.. Coronal and sagittal reformatted images were obtained. COMPARISON: CT abdomen and pelvis without contrast 03/09/2020 CLINICAL HISTORY:Lower abdominal pain DISCUSSION: ABDOMEN/PELVIS: LOWER THORAX:Lung bases are unremarkable. No pleural effusion. HEPATOBILIARY: Hepatic parenchyma is again diffusely hypoattenuating compatible with steatosis. Mild hepatomegaly is again noted. No focal hepatic lesion. No intra-or extrahepatic biliary ductal dilation. The gallbladder is unremarkable. SPLEEN: No splenomegaly or focal splenic lesion. PANCREAS: No focal masses or ductal dilatation. There is mild fat stranding adjacent to the pancreatic head and uncinate process for example on series 2 image 43. The pancreatic parenchyma enhances uniformly. ADRENALS: 1.1 cm hypoattenuating nodule in the medial limb of the left adrenal, average internal attenuation 60 Hounsfield units. On the comparison noncontrast examination, average internal attenuation was approximately 15-20 Hounsfield units. No right adrenal nodule. KIDNEYS/URETERS: 1.7 cm parenchymal hypoattenuating lesion in the right kidney with average internal attenuation less than 20 Hounsfield units compatible with a cyst. No additional focal renal lesion. No hydronephrosis or calculi. PELVIC ORGANS/BLADDER: The urinary bladder is unremarkable. Uterus is anteflexed with a 1.5 cm hypoattenuating lesion at the fundus presumably a fibroid. The right ovary is not identified. As before, the left ovary is enlarged, measuring approximately 4.4 cm AP x 3.4 cm transverse x 5.5 cm craniocaudal. There is a 2.3 cm hypoattenuating structure within the medial aspect of the ovary, average internal attenuation 15-20 Hounsfield units. There is no adjacent inflammatory change. PERITONEUM/RETROPERITONEUM: No ascites or pneumoperitoneum. LYMPH NODES: No pelvic sidewall, retroperitoneal, or mesenteric lymphadenopathy. VESSELS: Atherosclerotic calcification of the abdominal aorta and major branch vessels without aneurysmal dilatation. Portal vein, splenic vein, and central superior mesenteric vein are patent. Ovarian venous patency cannot be assessed due to phase of scan; however, no perivenous inflammatory change. GI TRACT: The large bowel is again notable for scattered descending and sigmoid colon diverticula without wall thickening or inflammatory change. Scattered diverticula are also noted along the ascending colon. The appendix is normal. There is mild fat stranding along the third and fourth portions of the duodenum as well as the pancreatic head and uncinate process. BONES AND SOFT TISSUE: No osseous destructive lesions. No focal soft tissue abnormalities. IMPRESSION: Findings suggest acute pancreatitis involving the head and uncinate process, with inflammatory changes extending along the duodenal sweep. No evidence of parenchymal necrosis. Correlation with serum amylase and lipase is suggested. Persistent nonspecific enlargement of the left ovary, with a 2.4 cm low-attenuation structure medially, likely representing a cyst possibly with hemorrhagic or proteinaceous component. No paraovarian inflammation. 1.1 cm left adrenal nodule is indeterminate though statistically likely to represent an adenoma. Definitive characterization with nonemergent CT or MRI of the abdomen with and without contrast (adrenal mass protocol) is suggested. Additional findings include hepatic steatosis, large bowel diverticulosis without findings of diverticulitis, uterine fundal fibroid, and atherosclerotic vascular disease. Signed by: Dr. Mario Wadsworth M.D. on 03/12/2020 8:46 AM
[2020-03-12 08:56] VITALS: BP 152/90
[2020-03-12] MEDS: HYDROCHLOROTHIAZIDE 25 MG TAB PO SCH (09:00)
[2020-03-12] MEDS: AMLODIPINE BESYLATE 5 MG TAB PO SCH (09:00)
[2020-03-12] MEDS: OMEGA 3 POLYUNSAT FATTY ACIDS 1000 MG SOFTGEL PO SCH (09:00)
[2020-03-12] MEDS: ESCITALOPRAM OXALATE 10 MG TAB PO SCH (09:00)
[2020-03-12] MEDS: VALSARTAN 160 MG TAB PO SCH (09:00)
[2020-03-12] MEDS ORDERED: MAGNESIUM SULFATE 2GM/50ML 50 ML IV ONE (10:30)
[2020-03-12 11:28] VITALS: BP 150/77
[2020-03-12 15:40] VITALS: BP 151/86
[2020-03-12] MEDS: PANTOPRAZOLE 40 MG 10ML VIAL IV SCH (16:10)
[2020-03-12 20:00] VITALS: BP 126/60
--- NOTE | 2020-03-12 20:00 | NUR ---
BEDSIDE SHIFT REPORT RECEIVED FROM DAY RN. PT IS ALERT AND ORIENTED X3. 20G LEFT FA INTACT- SITE HEALTHY. RESPIRATIONS ARE EVEN AND UNLABORED. PAIN IN ABDOMEN COMES AND GOES. TOLERATING CLEAR LIQUIDS.CALL LIGHT WITHIN REACH. BED LOCKED AND IN LOW POSITION.
[2020-03-12] MEDS: ONDANSETRON HCL INJ 2MG/ML 2ML 2 MG/ML VIAL IV PRN (20:07)
--- NOTE | 2020-03-12 22:47 | Progress Note ---
DATE: 03/12/2020 CONSULTING PHYSICIANS: 1. Dr. Migule Angel Cox MD, with surgery. 2. Mario Lou MD, with SAUSAGE WRAPPER. 3. Donovan Foreman MD, with Gastroenterology. SUBJECTIVE: The patient is lying supine in bed, awake, alert. States she is feeling much better. Per the registered nurse, the patient is requesting pain medication very timely, every 4 hours. The patient was seen at 2145 in the evening. Pain level at that time, 5/10 on a 0-10 pain scale. Currently denies nausea, vomiting, diarrhea, or constipation. She had 3 bowel movements today. The first one hurt and was hard. OBJECTIVE: VITAL SIGNS: Temperature 97.9, heart rate 67, blood pressure 162/86, respirations 18, and oxygen saturation 100%. GENERAL: Supine, no acute distress. LUNGS: Clear to auscultation. Respiratory pattern even and unlabored. HEENT: EOMI. NECK: Supple. CARDIOVASCULAR: Regular rate and rhythm. No murmur. ABDOMEN: Bowel sounds positive. Obese, soft. Mild central and diffuse abdominal tenderness to gentle palpation. No guarding. EXTREMITIES: No pitting edema. No clubbing, cyanosis, or signs of DVT. NEUROLOGICAL: GCS 15. Nonfocal. LABORATORY DATA: WBC 6.51, hemoglobin 13.4, hematocrit 41.3, platelets 245. Sodium 141, potassium 3.5, chloride 107, CO2 of 25, anion gap 12.5, BUN 8, creatinine 0.51, estimated GFR greater than 60, glucose 128, calcium 8.6, phosphorus 2.5, magnesium 1.6, total bilirubin 0.6, AST 49, ALT 56, alkaline phosphatase 64, total protein 6.7, albumin 2.9. Coronavirus PCR not detected on 03/09. CT of the abdomen and pelvis done today. According to interpreting radiologist findings suggestive of acute pancreatitis involving the head and uncinate process with inflammatory changes, extending along the duodenal sweep. No evidence of parenchymal necrosis. Persistent nonspecific enlargement of the left ovary with a 2.4 cm low-attenuation structure medially, likely representing a cyst, possibly with a hemorrhagic or proteinaceous component, 1.1 cm left adrenal nodule is indeterminate, though statistically likely to represent an adenoma. Additional findings include hepatic steatosis, large bowel diverticulosis without findings of diverticulitis, uterine fundal fibroid, and atherosclerotic vascular disease. These findings were noted and a stat lipase and amylase were collected, both were 30 and within normal limits. ASSESSMENT/PLAN: 1. Acute pancreatitis with acute diffuse abdominal pain. Continue with pain control medication. Dr. Lou has signed off the case. Surgeon has seen and evaluated the patient today. Continue IV Flagyl and Zosyn. Given that the CT shows acute pancreatitis, we will resume her diet very gradually. She is currently on clear liquid diet. As per surgeon recommendations, we will consult Gastroenterology. Continue IV fluids with normal saline with 20 mEq potassium chloride at 100 mL an hour. 2. Uncontrolled hypertension, likely due to pain. Continued Diovan, hydrochlorothiazide, and Norvasc. 3. Uncontrolled type 2 diabetes mellitus. Hemoglobin A1c 10.4%. ADA diet when able to tolerate it. Continue sliding scale insulin. Monitor fingerstick blood glucose levels. 4. Acute hypokalemia. Potassium level 3.5 (3.3, 3.3). Continue supplemental potassium and IV fluids. Reassess in the morning. 5. Acute hypomagnesemia. Magnesium level 1.6 today (1.5). Another 2 g of magnesium sulfate ordered for today. Reassess level in a.m. 6. Transaminitis with AST 49 and ALT 56. Monitor. 7. Hyperlipidemia. 8. Obesity with BMI of 30.78. Dietary restriction. 9. Prophylaxis, Pepcid. Time spent 35 minutes. Billing code [id number]. Dictated by Armando Izaguirre NP MD JAE CejaP/MODL /[id number]
[2020-03-12] MEDS ORDERED: LACTATED RINGER'S 1,000 ML INJ SCH (23:45)
[2020-03-13] VITALS (8 sets, daily range): BP systolic 132–174; BP diastolic 66–91
[2020-03-13] MEDS: HYDROMORPHONE 1MG/1ML INJ IV PRN ×4 (01:04→21:08)
[2020-03-13] MEDS: PANTOPRAZOLE 40 MG 10ML VIAL IV SCH ×3 (01:07→23:42)
[2020-03-13] MEDS: ONDANSETRON HCL INJ 2MG/ML 2ML 2 MG/ML VIAL IV PRN (01:18)
[2020-03-13] MEDS: PIPER-TAZ 3.375 GM 50 ML IV SCH ×4 (03:04→21:08)
[2020-03-13] MEDS: LACTATED RINGER'S 1,000 ML INJ SCH ×5 (03:30→22:40)
[2020-03-13] MEDS ORDERED: SODIUM CHLORIDE 0.9% 250ML 250 ML ONE (03:34)
[2020-03-13] MEDS: METRONIDAZOLE 500MG/NS 100ML 100 ML IV SCH ×5 (06:03→23:42)
[2020-03-13 06:21] LABS: BASOPHILS # (AUTO) 0.1 (0.0-0.1); BASOPHILS % 1.1 % (0.0-1.0); EOSINOPHILS # (AUTO) 0.3 (0.0-0.4); EOSINOPHILS % 4.9 % (0.0-6.0); HEMATOCRIT 41.6 % (34.2-44.1); HEMOGLOBIN 13.8 g/dL (12.0-16.0); LYMPHOCYTES # (AUTO) 1.5 (1.0-3.2); MEAN CORPUSCULAR HEMOGLOBIN 31.5 pg (28-32); MEAN CORPUSCULAR HGB CONC 33.2 g/dL (31-35); MONOCYTES # (AUTO) 0.5 (0.2-0.8); MONOCYTES % 9.7 % (4.4-11.3); NEUTROPHILS # (AUTO) 2.9 (2.1-6.9); NEUTROPHILS % 54.9 % (38.7-80.0); PLATELET COUNT 234 x10e3/uL (140-360); RED BLOOD COUNT 4.38 x10e6/uL (3.6-5.1); RED CELL DISTRIBUTION WIDTH 13.2 % (11.7-14.4)
[2020-03-13 06:51] LABS: MAGNESIUM 1.6 MG/DL (1.3-2.1)
[2020-03-13 07:02] LABS: ALANINE AMINOTRANSFERASE 56 IU/L (0-55); ALBUMIN 2.9 g/dL (3.5-5.0); ALBUMIN/GLOBULIN RATIO 0.9 (0.8-2.0); ALKALINE PHOSPHATASE 74 IU/L (40-150); ANION GAP 12.2 mmol/L (8-16); BLOOD UREA NITROGEN 5 mg/dL (7-26); BUN/CREATININE RATIO 10 (6-25); CALCIUM 8.2 mg/dL (8.4-10.2); CARBON DIOXIDE 22 mmol/L (22-29); CHLORIDE 110 mmol/L (98-107); EST GLOMERULAR FILTRATION RATE > 60 ML/MIN (60-); GLUCOSE 126 mg/dL (74-118); POTASSIUM 3.2 mmol/L (3.5-5.1); SODIUM 141 mmol/L (136-145)
[2020-03-13] MEDS: INSULIN REGULAR, HUMAN 100 UNIT/1 ML 3ML VIAL SQ SCH ×4 (07:30→21:36)
[2020-03-13] MEDS: FAMOTIDINE 20 MG/2 ML VIAL IV SCH ×2 (09:27→16:20)
[2020-03-13] MEDS: VALSARTAN 160 MG TAB PO SCH (09:28)
[2020-03-13] MEDS: HYDROCHLOROTHIAZIDE 25 MG TAB PO SCH (09:28)
[2020-03-13] MEDS: AMLODIPINE BESYLATE 5 MG TAB PO SCH (09:34)
[2020-03-13] MEDS: OMEGA 3 POLYUNSAT FATTY ACIDS 1000 MG SOFTGEL PO SCH (09:34)
[2020-03-13] MEDS: ESCITALOPRAM OXALATE 10 MG TAB PO SCH (09:34)
[2020-03-13] MEDS ORDERED: MAGNESIUM SULFATE 2GM/50ML 50 ML IV ONE (10:00)
[2020-03-13] MEDS ORDERED: POTASSIUM CHLORIDE 20 MEQ TAB CR PO NR (13:00)
[2020-03-13] MEDS ORDERED: POTASSIUM CHLORIDE 20 MEQ TAB CR PO STA (19:56)
--- NOTE | 2020-03-13 22:38 | Diagnostic Imaging Report ---
EXAMINATION: CHEST XRAY LINE PLACEMENT INDICATION: Right upper extremity PICC placement, verify position COMPARISON: Abdominal CT 03/12/2020 FINDINGS: TUBES and LINES: New right upper extremity PICC, tip terminates in the superior aspect of the right atrium. LUNGS: Low lung volumes. Lungs are clear. No consolidations. PLEURA: No pleural effusion or pneumothorax. HEART AND MEDIASTINUM: The cardiomediastinal silhouette is unremarkable. BONES AND SOFT TISSUES: No acute osseous lesion. Soft tissues are unremarkable. UPPER ABDOMEN: No free air under the diaphragm. IMPRESSION: New right upper extremity PICC, tip terminates in the superior aspect of the right atrium. Signed by: Foster Kim DO on 03/13/2020 10:34 PM
[2020-03-14] VITALS (7 sets, daily range): BP systolic 121–162; BP diastolic 65–87
--- NOTE | 2020-03-14 00:41 | Diagnostic Imaging Report ---
EXAMINATION: CHEST XRAY LINE PLACEMENT INDICATION: PICC line placement, verify position COMPARISON: Chest x-ray 7 07/23/2020 22:02 FINDINGS: TUBES and LINES: The right upper extremity PICC tip is at the superior cavoatrial junction, ideal. LUNGS: Normal lung volumes. Lungs are clear. No consolidations. PLEURA: No pleural effusion or pneumothorax. HEART AND MEDIASTINUM: The cardiomediastinal silhouette is unremarkable. BONES AND SOFT TISSUES: No acute osseous lesion. Soft tissues are unremarkable. UPPER ABDOMEN: No free air under the diaphragm. IMPRESSION: The right upper extremity PICC tip is at the superior cavoatrial junction, ideal. Signed by: Foster Kim DO on 03/14/2020 12:38 AM
[2020-03-14] MEDS: PIPER-TAZ 3.375 GM 50 ML IV SCH ×4 (03:27→21:55)
[2020-03-14] MEDS: HYDROCODONE/APAP 7.5MG-325MG 1 EA TAB PO PRN ×3 (04:34→22:11)
[2020-03-14] MEDS: METRONIDAZOLE 500MG/NS 100ML 100 ML IV SCH ×3 (05:59→19:00)
[2020-03-14 06:19] LABS: ALANINE AMINOTRANSFERASE 61 IU/L (0-55); ALBUMIN 2.9 g/dL (3.5-5.0); ALBUMIN/GLOBULIN RATIO 0.9 (0.8-2.0); ALKALINE PHOSPHATASE 70 IU/L (40-150); ANION GAP 9.4 mmol/L (8-16); BLOOD UREA NITROGEN < 5 mg/dL (7-26); CALCIUM 8.5 mg/dL (8.4-10.2); CARBON DIOXIDE 26 mmol/L (22-29); CHLORIDE 107 mmol/L (98-107); EST GLOMERULAR FILTRATION RATE > 60 ML/MIN (60-); GLUCOSE 140 mg/dL (74-118); MAGNESIUM 1.5 MG/DL (1.3-2.1); POTASSIUM 3.4 mmol/L (3.5-5.1); SODIUM 139 mmol/L (136-145)
[2020-03-14 06:22] LABS: BUN/CREATININE RATIO 10 (6-25)
[2020-03-14] MEDS: INSULIN REGULAR, HUMAN 100 UNIT/1 ML 3ML VIAL SQ SCH ×4 (07:30→21:00)
[2020-03-14] MEDS: LACTATED RINGER'S 1,000 ML INJ SCH ×3 (08:47→22:29)
[2020-03-14] MEDS: FAMOTIDINE 20 MG/2 ML VIAL IV SCH ×2 (08:47→17:07)
[2020-03-14] MEDS: HYDROCHLOROTHIAZIDE 25 MG TAB PO SCH (08:48)
[2020-03-14] MEDS: VALSARTAN 160 MG TAB PO SCH (08:48)
[2020-03-14] MEDS: AMLODIPINE BESYLATE 5 MG TAB PO SCH (08:48)
[2020-03-14] MEDS: OMEGA 3 POLYUNSAT FATTY ACIDS 1000 MG SOFTGEL PO SCH (08:48)
[2020-03-14] MEDS: ESCITALOPRAM OXALATE 10 MG TAB PO SCH (08:48)
[2020-03-14] MEDS: PANTOPRAZOLE 40 MG 10ML VIAL IV SCH (09:44)
[2020-03-14] MEDS ORDERED: MAGNESIUM SULFATE 2GM/50ML 100 ML IV ONE (12:00)
[2020-03-14] MEDS ORDERED: POTASSIUM CHLORIDE 20 MEQ TAB CR PO NR ×2 (16:00→20:00)
[2020-03-14] MEDS ORDERED: SODIUM CHLORIDE 0.9% 250ML 250 ML ONE (22:29)
[2020-03-15] VITALS: BP 146/82
[2020-03-15] MEDS: METRONIDAZOLE 500MG/NS 100ML 100 ML IV SCH ×4 (00:25→18:00)
[2020-03-15] MEDS: PANTOPRAZOLE 40 MG 10ML VIAL IV SCH ×2 (00:25→12:56)
[2020-03-15] MEDS: PIPER-TAZ 3.375 GM 50 ML IV SCH ×3 (03:29→15:00)
[2020-03-15 04:00] VITALS: BP 143/77
[2020-03-15] MEDS: LACTATED RINGER'S 1,000 ML INJ SCH ×2 (06:27→14:06)
[2020-03-15 06:46] LABS: BASOPHILS # (AUTO) 0.1 (0.0-0.1); BASOPHILS % 0.9 % (0.0-1.0); EOSINOPHILS # (AUTO) 0.3 (0.0-0.4); EOSINOPHILS % 4.1 % (0.0-6.0); HEMATOCRIT 41.1 % (34.2-44.1); HEMOGLOBIN 13.7 g/dL (12.0-16.0); LYMPHOCYTES # (AUTO) 1.9 (1.0-3.2); LYMPHOCYTES % 27.3 % (18.0-39.1); MEAN CORPUSCULAR HEMOGLOBIN 30.3 pg (28-32); MEAN CORPUSCULAR HGB CONC 33.3 g/dL (31-35); MEAN CORPUSCULAR VOLUME 90.9 fL (81-99); MONOCYTES # (AUTO) 0.6 (0.2-0.8); MONOCYTES % 9.4 % (4.4-11.3); NEUTROPHILS # (AUTO) 3.9 (2.1-6.9); NEUTROPHILS % 57.9 % (38.7-80.0); PLATELET COUNT 250 x10e3/uL (140-360); RED BLOOD COUNT 4.52 x10e6/uL (3.6-5.1); RED CELL DISTRIBUTION WIDTH 12.7 % (11.7-14.4)
--- NOTE | 2020-03-15 06:49 | NUR ---
left message with answering service regarding new consult for dr delong.
[2020-03-15 07:26] LABS: ALANINE AMINOTRANSFERASE 53 IU/L (0-55); ALBUMIN 2.9 g/dL (3.5-5.0); ALBUMIN/GLOBULIN RATIO 0.9 (0.8-2.0); ALKALINE PHOSPHATASE 69 IU/L (40-150); ANION GAP 11.3 mmol/L (8-16); BLOOD UREA NITROGEN < 5 mg/dL (7-26); CALCIUM 8.9 mg/dL (8.4-10.2); CARBON DIOXIDE 27 mmol/L (22-29); CHLORIDE 105 mmol/L (98-107); CREATININE, SERUM 0.51 mg/dL (0.57-1.11); EST GLOMERULAR FILTRATION RATE > 60 ML/MIN (60-); GLUCOSE 125 mg/dL (74-118); MAGNESIUM 1.5 MG/DL (1.3-2.1); POTASSIUM 3.3 mmol/L (3.5-5.1); SODIUM 140 mmol/L (136-145)
[2020-03-15 07:29] LABS: BUN/CREATININE RATIO 10 (6-25)
[2020-03-15 08:00] VITALS: BP 153/76
[2020-03-15] MEDS: INSULIN REGULAR, HUMAN 100 UNIT/1 ML 3ML VIAL SQ SCH ×3 (08:00→16:45)
[2020-03-15 08:04] VITALS: BP 143/77
[2020-03-15] MEDS: AMLODIPINE BESYLATE 5 MG TAB PO SCH (10:16)
[2020-03-15] MEDS: OMEGA 3 POLYUNSAT FATTY ACIDS 1000 MG SOFTGEL PO SCH (10:16)
[2020-03-15] MEDS: ESCITALOPRAM OXALATE 10 MG TAB PO SCH (10:16)
[2020-03-15] MEDS: FAMOTIDINE 20 MG/2 ML VIAL IV SCH ×2 (10:16→17:00)
[2020-03-15] MEDS: HYDROCHLOROTHIAZIDE 25 MG TAB PO SCH (10:16)
[2020-03-15] MEDS: VALSARTAN 160 MG TAB PO SCH (10:16)
[2020-03-15 12:00] VITALS: BP 161/82
[2020-03-15] MEDS: HYDROCODONE/APAP 7.5MG-325MG 1 EA TAB PO PRN (12:56)
--- NOTE | 2020-03-15 15:33 | NUR ---
Nutrition Screen Note RD Recommendation for Physician: -Recommend low fat, diabetic diet Plan of Care: RD following, monitoring for tolerance and adequacy Nutrition reason for involvement: Consult for diet education and length of stay Primary Diagnose(s): abdominal pain, lower back pain PMH: renal stone, hypertension, diabetes Ht: 65 in Wt:192 lb BMI: 32 kg/m2 IBW:[address] Assessment: (03/15/20) Chart reviewed. Labs and meds reviewed. Pt is a 49 year old female admitted with abdominal pain and lower back pain. Per MD note, CT scan showed acute pancreatitis. Pts diet was upgraded to solid foods today. Pt reports she is tolerating the diet. Pt reports a good appetite and mentioned she ate all of her meal today. Pt also declared she was eating well prior to admission. Pt stated she usually weighs 189-190 lbs. No N/V/D/C or abdominal pain reported at this time. Verbal education and materials regarding a low fat diet as well as how to count carbohydrates were provided. Will continue to monitor Current Diet: GI soft/low fat diet Malnutrition Evaluation (03/15/20) The patient does not meet criteria for a specified degree of malnutrition at this time. Will re-evaluate at follow-up as appropriate. Diet Education Needs Assessment: Diet education indicated Learner(s): pt Barriers: no barriers identified Cultural/Language Modifications: no cultural/language modifications Readiness: eager/acceptance Method: explanation/ discussion, handout Topics: carbohydrate counting and reading the food label, low fat diet Understanding/Compliance: pt verbalized understanding, needs reinforcement Nutrition Care Level: low Signed: Garima Jorgensen, RD, LD
[2020-03-15 16:00] VITALS: BP 169/85
--- NOTE | 2020-03-15 17:40 | NUR ---
PICC line removed from RUE with tip intact.
[2020-03-15] MEDS ORDERED: POTASSIUM CHLORIDE 20 MEQ TAB CR PO SCH (18:00)
[2020-03-15] MEDS ORDERED: MAGNESIUM OXID400 MG PO (18:10)
--- NOTE | 2020-03-15 18:41 | NUR ---
Discharge instructions and prescription were given to the patient. She verbalized understanding.
--- NOTE | 2020-03-15 20:45 | Progress Note ---
DATE: SUBJECTIVE: The patient complains of low back pain 7/10 on a 0-10 pain scale. Denies chills, abdominal pain, nausea, vomiting, and diarrhea. She is urinating frequently. She is getting copious IV fluids due to acute pancreatitis. She has good appetite. She is tolerating her full liquid diet well. Answered her questions today about her CT results. OBJECTIVE: VITAL SIGNS: Temperature 98.6, heart rate 58, blood pressure 148/72, respirations 18, and oxygen saturation 96%. GENERAL: No acute distress. LUNGS: Clear to auscultation. Respiratory pattern even and nonlabored on room air. HEENT: EOMI. NECK: Supple. CARDIOVASCULAR: Regular rate and rhythm. No murmur. ABDOMEN: Bowel sounds positive. Soft and obese. No guarding. EXTREMITIES: Without pitting edema. No clubbing, cyanosis, or notable swelling. NEUROLOGICAL: GCS 15. Nonfocal. LABORATORY DATA: Potassium 3.4, BUN less than 5, creatinine 0.5, estimated GFR greater than 60, and glucose 140. Fingerstick blood glucose levels 142, 209, 229. Magnesium level 1.5. AST 51 and ALT 61. Total protein 6.3 and albumin 2.9. No new imaging results. ASSESSMENT AND PLAN: 1. Acute pancreatitis with acute diffuse abdominal pain, improving. Continue pain management. Surgery signed off on 03/13. In his note route, we will defer further management and workup to Dr. Brant Foreman. Continue IV Flagyl and Zosyn. The patient has tolerated full liquid diet well and will be advanced to GI soft diet for breakfast on 03/15. IV fluids have been changed to LR at 125 mL/hour via right upper extremity PICC line. Appreciate recommendations from Dr. Foreman. 2. Uncontrolled hypertension, likely due to pain. Continue to treat underlying problem of abdominal pain. Continue Diovan, hydrochlorothiazide, and Norvasc. Blood pressure improving 148/72. 3. Uncontrolled type 2 diabetes mellitus. Hemoglobin A1c 10.4%. Monitor fingerstick blood glucose levels and continue sliding scale insulin. 4. Acute hypokalemia. Potassium level 3.4; 40 mEq potassium chloride to be given after the magnesium sulfate today. Continue to monitor potassium level. 5. Acute hypomagnesemia. Magnesium level 1.5 (1.6, 1.6, 1.5). The patient seems refractory to treatment. She has received magnesium sulfate 2 g on both previous days. We will give an order for 4 g of magnesium sulfate IV once today in an effort to improve it. 6. Transaminitis with AST 51 and ALT 61, gradually improving. Monitor. 7. Hyperlipidemia. Triglyceride showing an obvious downward trend and likely will continue to improve with lactated Ringer's. The patient can follow up on lipid levels on an outpatient basis at this point. 8. Obesity with BMI of 30.78. Dietary restrictions. Dietitian consulted 03/13 and is to see the patient tomorrow on 03/15. Dietary instructions are needed as the patient has fatty liver. She will need a low-fat, high-fiber diet preferably [employer] Diet, which is the plan for post discharge. 9. Prophylaxis. Pepcid. Time spent 35 minutes. Billing code [id number]. Dictated by Armando Izaguirre NP MD GIN Ceja/MODL /[id number]
--- NOTE | 2020-03-15 22:41 | Discharge Summary ---
PRIMARY CARE PHYSICIAN: Carlos Alvarez. CONSULTING PHYSICIANS: 1. Miguel Angel Cox MD, with Surgery. 2. Mario Lou MD, with LEAD QUALITY TECHNICIAN. 3. Donovan Foreman MD, with Gastroenterology. An effort was made to consult Dr. Citlalli Fontaine, with LEAD QUALITY TECHNICIAN as a second opinion. This second opinion was put in as a courtesy for the patient just to give her reassurance. However, Dr. Fontaine and/or associate has not been brought to see the patient as of yet. This is a new consult. Clinically, this is not imperative that she be seen by LEAD QUALITY TECHNICIAN, she can follow up with her outpatient LEAD QUALITY TECHNICIAN. CHIEF COMPLAINT: On admission was abdominal pain. HISTORY OF PRESENT ILLNESS: She is a 49-year-old female, admitted with increased bilateral low back pain, radiating to the abdomen for one month intermittently, which became worse one day prior to admission. She fell about one month ago, hurting her back, but did not seek care at that time. She fell at [employer], while attempting to load an ice chest. PAST MEDICAL HISTORY: Kidney stones, insulin-dependent diabetes mellitus, hypertension, hyperlipidemia, noncompliance with medications at home. She has been prescribed insulin and oral diabetic medications at home. 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 PAST SURGICAL HISTORY: Right ovary removed due to a cyst 29 years ago, , and scar tissue removal. FAMILY HISTORY: Mother had diabetes. SOCIAL HISTORY: The patient is an everyday smoker. Drinks alcohol occasionally. ALLERGIES: STATINS AND DARVOCET. ADMITTING DIAGNOSES: 1. Acute diffuse abdominal pain. 2. Status post fall one month ago with residual bilateral low back pain. 3. Uncontrolled hypertension. 4. Uncontrolled type 2 diabetes mellitus. 5. Obesity with BMI of 30.78. DISCHARGE DIAGNOSES: 1. Acute pancreatitis with acute diffuse abdominal pain, improving. 2. Uncontrolled hypertension, likely due to abdominal pain. 3. Uncontrolled type 2 diabetes mellitus. 4. Acute hypokalemia. 5. Acute hypomagnesemia, refractory. 6. Transaminitis with elevated AST and elevated ALT. 7. Hyperlipidemia with hypertriglyceridemia. 8. Obesity with BMI of 30.78. Initial CT of the abdomen and pelvis without contrast showed left ovarian enlargement and a pelvic ultrasound was recommended. Uterine fibroids were suspected, showed hepatomegaly with hepatic steatosis, colonic diverticulosis without diverticulitis and coronary artery calcifications. Her transvaginal ultrasound on 03/09 showed enlarged left ovary without readily detectable arterial/venous waveforms, although no cyst or mass present. Torsion could not be excluded by imaging, plus the patient did not get the CT of the abdomen and pelvis after that on 03/09. Later on the CT of the abdomen and pelvis was repeated on 03/12. By that time, she had been seen by OB/Gynecology as well as Surgery. Per the surgical note on 03/12, diagnosis was improved pancreatitis/diverticulosis and she was on clear liquids. The CT of the abdomen and pelvis on 03/12 showed findings suggestive of acute pancreatitis involving the head and uncinate process with inflammatory changes extending along the duodenal sweep. There was no evidence of parenchymal necrosis. Persistent nonspecific enlargement of left ovary with a 2.4 cm low-attenuation structure medially, likely representing a cyst, possibly with hemorrhagic or proteinaceous component. No paraovarian inflammation. A 1.1 cm left adrenal nodule, indeterminate though statistically likely to represent an adenoma. Additional findings included hepatic steatosis, large bowel diverticulosis without findings of diverticulitis, uterine fundal fibroid, and atherosclerotic vascular disease. On 03/12, it was also recommended that a GI consult be obtained and Dr. Donovan Foreman followed the patient and he noted that the lipase was 30, which was improved from 85. The amylase was 30 and the triglycerides were elevated. Her initial triglycerides were 870 on 03/10 with treatment with IV fluids, which were later switched to lactated Ringer's. Her triglycerides improved to 273. Per Dr. Foreman, the elevated triglycerides were likely the underlying cause of the acute pancreatitis. Her lipase now within normal limits, continued to improve. Her diet was gradually advanced from clear liquid to full liquid to GI soft over the next few days. Her lipase on 03/13 was 25. She had electrolyte imbalances associated with the acute pancreatitis. She had low potassium and magnesium levels, which seen refractory to treatment despite repletion daily. Today, on the day of discharge 03/15, she has no abdominal pain. It seems to have completely resolved. She is tolerating a GI soft diet well since breakfast 03/15. She is to be on a low-fat, high-fiber, 1800 calorie ADA diet. Post discharge dietitian came and spoke to the patient regarding dietary instructions. It has been explained to her that she has a fatty liver. Today, her AST 34, ALT 53, potassium level 3.3, lipase 22, magnesium 1.5. She will be sent home on magnesium oxide 400 mg p.o. b.i.d. This is a new prescription for her. Continue her home medications. Activity level as tolerated. Follow up with PCP, Dr. Alvarez in 1-2 weeks. Follow up with Dr. Foreman in one week. Follow up with LEAD QUALITY TECHNICIAN physician either outpatient or Dr. Fontaine in 1-2 weeks. Dictated by Armando Izaguirre NP MD JAE CejaP/CRISS /[id number]
--- NOTE | 2020-03-16 09:47 | Progress Note ---
DATE: 03/13/2020 SUBJECTIVE: The patient is lying supine in bed, is awake, alert, and oriented. She has been tolerating her clear liquid diet okay. No nausea or vomiting. She still has abdominal pain off and on, but it is considerably decreased. She did have a bowel movement. OBJECTIVE: VITAL SIGNS: Temperature 98.5, pulse 67, respirations 20, blood pressure 164/83, and oxygen saturation 100%. GENERAL: No acute distress. LUNGS: Clear to auscultation. Respirations even and nonlabored. No supplemental oxygen in use. HEENT: EOMI. NECK: Supple. CARDIOVASCULAR: Regular rate and rhythm. No murmur. ABDOMEN: Bowel sounds positive. Soft, obese, mild central and diffuse abdominal tenderness to gentle palpation. No guarding. EXTREMITIES: Without pitting edema. No clubbing, cyanosis, or signs of DVT. NEUROLOGIC: GCS 15. Nonfocal. LABORATORY DATA: WBC is 5.28, hemoglobin 13.8, hematocrit 41.6, platelets 234,000, sodium 141, potassium 3.2, chloride 110, CO2 22, anion gap 12.2, BUN 5, creatinine 0.5, estimated GFR greater than 60, glucose 126, calcium 8.2, magnesium 1.6, total bilirubin 0.6, AST 44, ALT 56, alkaline phosphatase 74, total protein 6.3, albumin 2.9, lipase 25, triglycerides 273, triglycerides on 03/10 were 870. Fingerstick blood glucose levels 150, 212, and 193. Repeat CT of the abdomen and pelvis with contrast was done today, findings suggest acute pancreatitis involving the head and uncinate process with inflammatory changes extending along the duodenal sweep. No evidence of parenchymal necrosis, correlation with serum amylase and lipase is suggested, persistent nonspecific enlargement of the left ovary, with a 2.4 cm low-attenuation structure medially likely representing a cyst possibly with hemorrhagic or proteinaceous component. No paraovarian inflammation, 1.1 cm left adrenal nodule is indeterminate though statistically likely to represent an adenoma. Additional findings include hepatic steatosis, large bowel diverticulosis without findings of diverticulitis, uterine fundal fibroid, and atherosclerotic vascular disease. The patient had a PICC line inserted on 03/13. Chest x-ray showed new right upper extremity PICC tip terminates in the superior aspect of the right atrium. ASSESSMENT AND PLAN: 1. Acute pancreatitis with acute diffuse abdominal pain. Continue with pain control medication. 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 Continue IV Flagyl and Zosyn. We are resuming her diet very gradually as her CT shows acute pancreatitis. She remains on a clear liquid diet. Gastroenterology was consulted with diagnosis listed as interstitial pancreatitis, resolving in the GI note. The lipase is now within normal limits of 25 starting clear liquid diet. GI is advancing her diet to full liquid diet. Continue IV fluids with normal saline with 20 mEq potassium chloride at 100 mL an hour for hydration. 2. Uncontrolled hypertension, likely due to pain. Blood pressure 146/83 today. Continue to treat underlying cause and treat her pain. Continue Diovan, hydrochlorothiazide and Norvasc. 3. Uncontrolled type 2 diabetes mellitus. Hemoglobin A1c 10.4%. Continue sliding scale insulin and monitor blood glucose levels. Serum glucose 126. 4. Acute hypokalemia. Potassium level 3.2 (3.5). Continue supplemental potassium that is inside the IV fluids, 40 mEq of potassium chloride p.o. once today. 5. Acute hypomagnesemia. Magnesium level 1.6 today (1.6, 1.5), another 2 g of magnesium sulfate IV ordered for today. Reassess magnesium level in the morning. 6. Transaminitis with AST 44 and ALT 56. Monitor. 7. Hyperlipidemia. Triglycerides 273 (870) appears to be improving. This is likely the underlying cause of her acute pancreatitis. Case discussed with Gastroenterology. 8. Obesity with BMI of 30.78. Dietary restriction. 9. Prophylaxis, Pepcid. Billing code [id number]. Time spent 35 minutes. Dictated by Armando Izaguirre NP MD JAE CejaP/MODL /[id number]
== END 2020-03-15 20:34 | disposition home or self-care (01) | DRG 439 ==
LOC: FSED 05:40 → ERHOLD 12:24 → MED/SURG2 14:01
PROVIDERS: ADMIT Internal Medicine; ATTEND Internal Medicine
PROC: 02HV33Z Insertion of Infusion Device into Superior Vena Cava, Percutaneous Approach (ICD-10-PCS; principal; 2020-03-13)
DX: K85.90 Acute pancreatitis without necrosis or infection, unspecified (principal); K57.92 Diverticulitis of intestine, part unspecified, without perforation or abscess without bleeding; I10 Essential (primary) hypertension; E66.9 Obesity, unspecified; Z68.30 Body mass index [BMI] 30.0-30.9, adult; Z11.59 Encounter for screening for other viral diseases; Z91.19 Patient's noncompliance with other medical treatment and regimen; M54.5 Low back pain; Z91.81 History of falling; R16.0 Hepatomegaly, not elsewhere classified; K76.0 Fatty (change of) liver, not elsewhere classified; N83.202 Unspecified ovarian cyst, left side; E87.6 Hypokalemia; E78.1 Pure hyperglyceridemia; E83.42 Hypomagnesemia; Z87.442 Personal history of urinary calculi
CPT/HCPCS: 36415; 36569; 71045; 74176; 74177; 76830; 76856; 80048; 80053; 80061; 80076; 81003; 81025; 82150; 82948; 83036; 83690; 83735; 84100; 84443; 84478; 85025; 93976; 96374; 96376; 99284; J0360; J1170; J1885; J2270; J2405; J2543; J3360; J3475; J7030; J7050; J7121; Q9967; U0002

== ENCOUNTER 2020-03-31 17:53 | Emergency (ER) | payer OTHER ==
[~2020-03-31] VITALS: Ht 165.1 cm; Wt 87.1 kg
[~2020-03-31 17:53] MED LIST changes: +AMLODIPINE BESYL5 MG PO; +AMLODIPINE-ATO1 EACH; +FENOFIBRATE145 MG PO; +HUMULIN R100 UNIT/2 SQ; +MAGNESIUM OXID400 MG PO; +OMEGA 3 FISH O1 EACH PO; +TRESIBA FL100 UNIT/1; +TRESIBA100 UNIT/1 SQ; +VALSARTAN-HCTZ1 EAC1; +VALSARTAN-HCTZ1 EAC2 PO
[2020-03-31] MEDS ORDERED: KETOROLAC TROMETHAMINE 30 MG/ML VIAL IM STA (18:20)
[2020-03-31] MEDS ORDERED: HYDROCODONE/APAP 5MG-325MG TAB PO ONE (18:30)
[2020-03-31] MEDS ORDERED: CYCLOBENZAPRINE HCL 10 MG TAB PO ONE (18:30)
--- NOTE | 2020-03-31 18:40 | Emergency Department Note ---
History of Present Illnes History of Present Illness Chief Complaint: Back Pain History of Present Illness This is a 49 year old female Chief Complaint Comment PT STATED SHE FELL OFF THE BACK OF A TRUCK AND SHE IS HAVING LOWER BACK PAIN THAT RADIATES DOWN HER RIGHT LEG X1 MONTH. NO OBVIOUS INJURY OR DEFORMITY NOTED . Onset (how long ago): day(s) (5) Location: BACK Quality: SHARP Radiation: Reports extremity; Denies non-radiation, Denies back, Denies neck, Denies abdomen, Denies periumbilical, Denies flank, Denies proximal, Denies distal, Denies other Severity: moderate Onset quality: gradual Duration (how long): day(s) (5) Timing of current episode: constant Progression: waxing and waning Chronicity: new Context: Denies recent illness, Denies recent surgery, Denies recent immobilization, Denies recent travel, Denies trauma/injury, Denies new medications, Denies hx of DVT/PE, Denies non-compliance w/ medications, Denies other Relieving factors: rest Exacerbating factors: movement Associated symptoms: Denies denies other symptoms, Denies confusion, Denies chest pain, Denies cough, Denies diaphoresis, Denies fever/chills, Denies hea daches, Denies loss of appetite, Denies malaise, Denies nausea/vomiting, Denies rash, Denies seizure, Denies shortness of breath, Denies syncope, Denies weakness, Denies other Treatments prior to arrival: none Past Medical/Family History Physician Review I have reviewed the patient's past medical and family history. Any updates have been documented here. Past Medical History Past Medical History: Hypertension, Diabetes, Asthma, Kidney Stones, Anxiety, Depression, Hyperlipedemia Other Medical History: SLEEP APNEA Past Surgical History: Other Surgery: x1 RIGHT OVARY REMOVED Social History Physically hurt or threatened: No Other Last Tetanus: unknown Review of Systems Review of Systems Constitutional: Reports no symptoms EENTM: Reports no symptoms Cardiovascular: Reports no symptoms Respiratory: Reports no symptoms Gastrointestinal: Reports no symptoms Genitourinary: Reports no symptoms Musculoskeletal: Reports as per HPI, Reports back pain, Reports muscle pain Integumentary: Reports no symptoms Neurological: Reports no symptoms Psychological: Reports no symptoms Endocrine: Reports no symptoms Hematological/Lymphatic: Reports no symptoms Physical Exam Related Data Allergies: Coded Allergies: Hrbhdta-Kpq-Ehj Reductase Inhibitor (Verified Allergy, 11/24/12) Vital signs reviewed: Yes Physical Exam CONSTITUTIONAL Constitutional: Present well-developed, Present well-nourished HENT HENT: Present normocephalic, Present atraumatic, Present oropharynx c lear/moist, Present nose normal HENT L/R: Present left ext ear normal, Present right ext ear normal EYES Eyes: Reports PERRL, Reports conjunctivae normal NECK Neck: Present ROM normal PULMONARY Pulmonary: Present effort normal, Present breath sounds normal CARDIOVASCULAR Cardiovascular: Present regular rhythm, Present heart sounds normal, Present capillary refill normal, Present normal rate GASTROINTESTINAL Abdominal: Present soft, Present nontender, Present bowel sounds normal GENITOURINARY Genitourinary: Present exam deferred SKIN Skin: Present warm, Present dry MUSCULOSKELETAL Musculoskeletal: Present tenderness (LUMBAR) NEUROLOGICAL Neurological: Present alert, Present oriented x 3, Present no gross motor or sensory deficits PSYCHOLOGICAL Psychological: Present mood/affect normal, Present judgement normal Assessment & Plan Medical Decision Making MDM contusion radiculopathy Reassessment Reassessment better Assessment & Plan Final Impression: (1) Sciatica (2) Radiculopathy, lumbar region (3) Acute low back pain Depart Disposition: HOME, SELF-skilled nursing Meds Active Scripts Magnesium Oxide (MAGNESIUM OXIDE) 400 Mg Tablet, 400 MG PO BID for 14 Days, #28 TAB 0 Refills Prov:ISABELLADOUGLAS NP 03/15/20 Reported Medications Amlodipine Besylate (AMLODIPINE BESYLATE) 5 Mg Tablet, 5 MG PO DAILY, #30 TAB 03/09/20 Valsartan/Hydrochlorothiazide (Valsartan-Hctz 160-25 mg Tab) 1 Each Tablet, 1 TAB PO DAILY 03/09/20 Insulin Degludec (Tresiba) 100 Unit/1 Ml Vial, 80 UNITS SQ HS 03/09/20 [place]-3 Fatty Acids/Fish Oil (OMEGA 3 FISH OIL SOFTGEL) 1 Each Capsule.dr, 1 CAP PO DAILY 03/09/20 Insulin Regular, Human (HUMULIN R) 100 Unit/1 Ml Vial, 30 UNITS SQ DINNER 03/09/20 Insulin Regular, Human (HUMULIN R) 100 Unit/1 Ml Vial, 20 UNITS SQ ACL 03/09/20 Insulin Regular, Human (HUMULIN R) 100 Unit/1 Ml Vial, 15 UNITS SQ AM 03/09/20 Fenofibrate Nanocrystallized (FENOFIBRATE) 145 Mg Tablet, 134 MG PO QAM 03/09/20 Amlodipine/Atorvastatin (AMLODIPINE-ATORVAST 5-10 MG) 1 Each Tablet, 5 03/09/20 Escitalopram Oxalate (LEXAPRO) 20 Mg Tablet, 20 MG PO DAILY 11/24/12 Medications in the ED Ketorolac Tromethamine 30 mg ONCE STAT IM Last administered on 03/31/20at 18:33; Admin Dose 30 MG; Start 03/31/20 at 18:20; Stop 03/31/20 at 18:21; Status UNV Cyclobenzaprine HCl 10 mg ONCE ONCE PO Last administered on 03/31/20at 18:33; Admin Dose 10 MG; Start 03/31/20 at 18:30; Stop 03/31/20 at 18:31; Status UNV Acetaminophen/ Hydrocodone Bitart 1 ea ONCE ONCE PO Last administered on at 18:33; Admin Dose 1 EA; Start 03/31/20 at 18:30; Stop 03/31/20 at 18:31; Status UNV JOSUÉ THAKKAR MD Mar 31, 2020 18:40
--- NOTE | 2020-03-31 18:42 | NUR ---
PT DENIED CT SCAN OF BACK, PT STATED SHE WANTED A MRI. DR AT BEDSIDE, PT CONTINUES TO DENIES CT SCAN OR XRAYS
--- OUTSIDE RECORDS SUMMARY | 2020-04-02 20:22 | XMS REPORT | Continuity of Care Document ---
Author Author [facility] t Organization [facility] Address [address] [place] [address] Phone Unavailable Care Team Providers Care Courtesy Clerk Name Role Phone MARCIE GARCIA PCP ANGEL PERLA Atted[employer] Unavailable ANGEL PERLA [employer] Unavailable Payers Payer Name Policy Type Policy Number Effective Date Expiration Date Day Childress [facility] [id number] 2015 00:00:00 [facility] Problems Condition Name Condition Details Condition Category Status Onset Date Resolution Date Last Treatment Date Treating Clinician Comments Source Acute low back pain Problem Active [facility] Abdominal pain Problem Active C [facility] Low back pain Problem Active [facility] I [facility] Uncontrolled diabetes mellitus Problem Active [facility] Hypertension Problem Active [facility] Sciatica Problem Active [facility] Lumbar radiculopathy Problem Active [facility] Allergies, Adverse Reactions, Alerts Allergy Name Allergy Type Status Severity Reaction(s) Onset Date Inacti ve Date Treating Clinician Comments Source Shxklgk-Pyr-Djm Reductase Inhibitor Allergy to substance Active 2020-03-31 00:00:00 [facility] Social History Social Habit Start Date Stop Date Quantity Comments Source Sex Assigned At 1970 00:00:00 1970 00:00:00 Female [facility] Medications Ordered Medication Name Filled Medication Name Start Date Stop Da te Current Medication? Ordering Clinician Indication Dosage Frequency Signature (SIG) Comments Components Source Magnesium Oxide Magnesium Oxide 2020-03-15 18:10:00 Yes 400 Twice A Day [facility] Amlodipine Besylate Amlodipine Besylate Yes 5 Daily [facility] Amlodipine/Atorvastatin (Amlodipine-Atorvast 5-10 Mg) 1 Each TABLET Amlodipine/Atorvastatin (Amlodipine-Atorvast 5-10 Mg) 1 Each TABLET Yes 5 [facility] Escitalopram Oxalate (Lexapro) 20 Mg TABLET Escitalopr am Oxalate (Lexapro) 20 Mg TABLET Yes 20 Daily [facility] Fenofibrate Nanocrystallized (Fenofibrate) 145 Mg TABL ET Fenofibrate Nanocrystallized (Fenofibrate) 145 Mg TABLET Yes 134 Every Morning [facility] Insulin Degludec (Tresiba) 100 Unit/1 Ml VIAL Insulin Degludec (Tresiba) 100 Unit/1 Ml VIAL Yes 80 Bedtime [facility] Insulin Regular, Human (Humulin R) 100 Unit/1 Ml VIAL Insulin Regular, Human (Humulin R) 100 Unit/1 Ml VIAL Yes 15 Am [facility] Insulin Regular, Human (Humulin R) 100 Unit/1 Ml VIAL Insulin Regular, Human (Humulin R) 100 Unit/1 Ml VIAL Yes 20 Before Lunch [facility] Insulin Regular, Human (Humulin R) 100 Unit/1 Ml VIAL Insulin Regular, Human (Humulin R) 100 Unit/1 Ml VIAL Yes 30 Dinner [facility] [place]-3 Fatty Acids/Fish Oil ([place] 3 Fish Oil Softgel ) 1 Each CAPSULE.DR Parnell- 3 Fatty Acids/Fish Oil ([place] 3 Fish Oil Softgel) 1 Each CAPSULE. Yes 1 Daily [facility] Valsartan/Hydrochlorothiazide (Valsartan-Hctz 160-25 M g Tab) 1 Each TABLET Valsartan/Hydrochlorothiazide (Valsartan-Hctz 160-25 Mg Tab) 1 Each TABLET Yes 1 Daily [facility] Acetaminophen/Hydrocodone Bitart (Thicket 10MG-325MG*) 1 Ea TAB Acetaminophen/Hydrocodone Bitart (Thicket 10MG-325MG*) 1 Ea TAB 2020-03-09 00:00:00 No 1 Every 4 Hours as needed [facility] Aspirin (Aspir-Darlin) 325 Mg TABLET. Aspirin (Aspir-Darlin) 325 M g TABLET. 2020-03-09 00:00:00 No 325 Daily [facility] Gemfibrozil Gemfibrozil 2020-03-09 00:00:00 No 600 D aily [facility] Glipizide (Glipizide Er) 10 Mg TAB.ER.24 Glipizide (Gl ipizide Er) 10 Mg TAB.ER.24 2020-03-09 00:00:00 No 10 Daily [facility] Hydralazine Hcl Hydralazine Hcl 2020-03-09 00:00:00 No 100 Daily [facility] Insulin Degludec (Tresiba Flextouch U-100) 100 Unit/1 Ml INSULN.PEN Insulin Degludec (Tresiba Flextouch U-100) 100 Unit/1 Ml INSULN.PEN 2020-03-09 00:00:00 No 80 Daily [facility] Levofloxacin (Levaquin) 500 Mg TABLET Levofloxacin (Levaquin) 50 0 Mg TABLET 2020-03-09 00:00:00 No 500 Daily [facility] Losartan/Hydrochlorothiazide (Losartan-Hctz 100-25 Mg Tab) 1 Each TABLET Losartan/Hydrochlorothiazide (Losartan-Hctz 100-25 Mg Tab) 1 Each TABLET 2020-03-09 00:00:00 No 1 Daily [facility] Meloxicam Meloxicam 2020-03-09 00:00:00 No 15 Daily [facility] Metformin Hcl (Metformin Hcl Er) 500 Mg TAB.ER.24H Met formin Hcl (Metformin Hcl Er) 500 Mg TAB.ER.24H 2020-03-09 00:00:00 No 1000 Da bijal [facility] Metformin Hcl (Metformin Hcl Er) 500 Mg TAB.ER.24H Met formin Hcl (Metformin Hcl Er) 500 Mg TAB.ER.24H 2020-03-09 00:00:00 No 1500 Be dtime [facility] Nifedipine (Nifediac Cc) 90 Mg TABLET.ER Nifedipine (N ifediac Cc) 90 Mg TABLET.ER 2020-03-09 00:00:00 No 90 Daily [facility] Pravastatin Sodium Pravastatin Sodium 2020-03-09 00:00:00 No 40 Daily [facility] Solifenacin Succinate (Vesicare) 5 Mg TABLET Solifenac in Succinate (Vesicare) 5 Mg TABLET 2020-03-09 00:00:00 No 5 Every Morning [facility] Valsartan/Hydrochlorothiazide (Valsartan-Hctz 160-12.5 Mg Tab) 1 Each TABLET Valsartan/Hydrochlorothiazide (Valsartan-Hctz 160-12.5 Mg Tab) 1 Each TABLET 2020-03-09 00:00:00 No [facility] Vital Signs Vital Name Observation Time Observation Value Comments Source Weight 2020-03-31 18:06:00 192 [lb_av] [facility] BMI (Body Mass Index) 2020-03-31 18:06:00 32.0 kg/m2 [facility] Body Temperature 2020-03-15 16:00:00 97.6 [degF] [facility] Procedures Procedure Date / Time Performed Performing Clinician Dwayne e INSERTION OF INFUSION DEV INTO SUP VENA CAVA, PERC APPROACH 2020-03-13 00:00:00 [facility] Computed tomography of abdomen and pelvis with contrast 00:00:00 [facility] Limited Doppler ultrasound of vessels of pelvis 2020-03-09 00:00 :00 [facility] US transvaginal 2020-03-09 00:00:00 [facility] Complete non-obstetrical ultrasound of pelvis 2020-03-09 00:00:0 0 [facility] Plan of Care Planned Activity Planned Date Details Comments Source Instructions Back Pain [facility] Encounters Start Date/Time End Date/Time Encounter Type Admission Type Attendi [facility] Facility Care Department Encounter ID Source 2020-03-31 17:53:00 2020-03-31 18:50:00 Departed Emergency Room [facility] [id number] [facility] dical Boyd 2020-03-09 12:24:00 2020-03-15 20:34:00 Discharged Inpatient 1 ANGEL PERLA [facility] [id number] [facility] Results Test Description Test Time Test Comments Results Result Comments Source Capillary blood glucose measurement by glucometer (mas s/volume) 2020-03-15 15:24:00 Test Item Bedside Glucose (test code = 48687-9) 244 70-120 Meter ID: [id number] SouthBlood leukocytes automated count (number/volume)2020-03-15 06:00:00* Test Item Value Reference Range Interpretation Comments White Blood Count (test code = 6690-2) 6.78 4.8-10.8 [facility] erythrocytes automated count (number/volume)2020-03-15 06:00:00* Test Item Value Reference Range Interpretation Comments Red Blood Count (test code = 789-8) 4.52 3.6-5.1 [facility] hemoglobin measurement (moles/volume)2020-03-15 06:00:00* Test Item Value Reference Range Interpretation Comments Hemoglobin (test code = 67615-2) 13.7 12.0-16.0 [facility] blood hematocrit (volume fraction)2020-03-15 06:00:00* Test Item Value Reference Range Interpretation Comments Hematocrit (test code = 4544-3) 41.1 34.2-44.1 [facility] erythrocyte mean corpuscular ocozcj0509-81-87 06:00:00* Test Item Value Reference Range Interpretation Comments Mean Corpuscular Volume (test code = 787-2) 90.9 81-99 [facility] mean corpuscular hemoglobin (mass per erythrocyte)2020-03-15 06:00:00* Test Item Value Reference Range Interpretation Comments Mean Corpuscular Hemoglobin (test code = 785-6) 30.3 28-32 [facility] erythrocyte mean corpuscular hemoglobin concentration measurement (mass/volume)2020-03-15 06:00:00* Test Item Value Reference Range Interpretation Comments Mean Corpuscular Hemoglobin Concent (test code = 786-4) 33.3 31-35 [facility] SouthRDW TvbWj-[id number] 06:00:00* Test Item Value Reference Range Interpretation Comments Red Cell Distribution Width (test code = 44343-6) 12.7 11.7 -14.4 [facility] platelet count (count/volume)2020-03-15 06:00:00* Test Item Value Reference Range Interpretation Comments Platelet Count (test code = 777-3) 250 140-360 [facility]Aut[facility] blood segmented neutrophil count as percentage of total iefzgvrhjm4697-81-18 06:00:00* Test Item Value Reference Range Interpretation Comments Neutrophils (%) (Auto) (test code = 61563-2) 57.9 38.7-80.0 [facility] South[facility] blood lymphocyte count as percentage ot total ylgmjsaiuf8877-12-25 06:00:00* Test Item Value Reference Range Interpretation Comments Lymphocytes (%) (Auto) (test code = 736-9) 27.3 18.0-39.1 [facility] South[facility] blood monocyte count as percentage of total ofrxnrpdwl9704-79-23 06:00:00* Test Item Value Reference Range Interpretation Comments Monocytes (%) (Auto) (test code = 5905-5) 9.4 4.4-11.3 [facility] blood eosinophil count as percentage of total typwlbiqnp1525-63-45 06:00:00* Test Item Value Reference Range Interpretation Comments Eosinophils (%) (Auto) (test code = 713-8) 4.1 0.0-6.0 [facility] SouthAutom[facility] blood basophil count as percentage of total xkfdhrxxvl7191-55-66 06:00:00* Test Item Value Reference Range Interpretation Comments Basophils (%) (Auto) (test code = 706-2) 0.9 0.0-1.0 [facility] SouthFluoroscopic procedure less than one hour ptrwphpi2489-68-55 06:00:00* Test Item Value Reference Range Interpretation Comments IM GRANULOCYTES % (test code = IM GRANULOCYTES %) 0.4 0.0- 1.0 [facility] South[facility] blood neutrophil count 2020-03-15 06:00:00* Test Item Value Reference Range Interpretation Comments Neutrophils # (Auto) (test code = 751-8) 3.9 2.1-6.9 [facility]Blood lymphocytes count (number/volume) 2020-03-15 06:00:00* Test Item Value Reference Range Interpretation Comments Lymphocytes # (Auto) (test code = 83781-5) 1.9 1.0-3.2 [facility] monocytes automated count (number/volume)2020-03-15 06:00:00* Test Item Value Reference Range Interpretation Comments Monocytes # (Auto) (test code = 742-7) 0.6 0.2-0.8 [facility] SouthAutom[facility] blood eosinophil count 2020-03-15 06:00:00* Test Item Value Reference Range Interpretation Comments Eosinophils # (Auto) (test code = 711-2) 0.3 0.0-0.4 [facility] SouthAutomated blood basophil count (count/volume)2020-03-15 06:00:00* Test Item Value Reference Range Interpretation Comments Basophils # (Auto) (test code = 704-7) 0.1 0.0-0.1 [facility] SouthFluoroscopic procedure less than one hour cmfqxkqq5969-00-69 06:00:00* Test Item Value Reference Range Interpretation Comments Absolute Immature Granulocyte (auto (mary t code = Absolute Immature Granulocyte (auto) 0.03 0-0.1 [facility] plasma sodium measurement (moles/volume)2020-03-15 06:00:00* Test Item Value Reference Range Interpretation Comments Sodium Level (test code = 2951-2) 140 136-145 [facility]westerum or plasma potassium measurement (moles/volume)2020-03-15 06:00:00* Test Item Value Reference Range Interpretation Comments Potassium Level (test code = 2823-3) 3.3 3.5-5.1 [facility]westerum or plasma chloride measurement (moles/volume)2020-03-15 06:00:00* Test Item Value Reference Range Interpretation Comments Chloride Level (test code = 2075-0) 105 98-107 [facility]westerum or plasma carbon dioxide, total measurement (moles/volume)2020-03-15 06:00:00* Test Item Value Reference Range Interpretation Comments Carbon Dioxide Level (test code = 2028-9) 27 22-29 [facility]westerum or plasma anion stj3802-90-54 06:00:00* Test Item Value Reference Range Interpretation Comments Anion Gap (test code = 43397-9) 11.3 8-16 [facility]westerum or plasma urea nitrogen measurement (mass/volume)2020-03-15 06:00:00* Test Item Value Reference Range Interpretation Comments Blood Urea Nitrogen (test code = 3094-0) < 5 7-26 [facility]westerum or plasma creatinine measurement (mass/volume)2020-03-15 06:00:00* Test Item Value Reference Range Interpretation Comments Creatinine (test code = 2160-0) 0.51 0.57-1.11 [facility]westerum or plasma urea nitrogen/creatinine mass uwuba6731-02-56 06:00:00* Test Item Value Reference Range Interpretation Comments BUN/Creatinine Ratio (test code = 3097-3) 10 6-25 [facility] SouthEstimated glomerular filtration rate (GFR) tirhiymlxvrpo8508-24-75 06:00:00* Test Item Value Reference Range Interpretation Comments Estimat Glomerular Filtration Rate (test code = 831398997) > 60 >60 Ranges were taken from the National Kidney Disease Education Program and the [employer] [facility] [employer] literature.Reference ranges:60 or greater: Rthrvl40-05 ( for 3 consecutive months): Chronic kidney disease 15 or less: Kidney failureShannon Medical Center SouthGlucose lcwumqlovge0535-85-15 06:00:00* Test Item Value Reference Range Interpretation Comments Glucose Level (test code = RLI3361) 125 74-118 [facility]westerum or plasma calcium measurement (mass/volume)2020-03-15 06:00:00* Test Item Value Reference Range Interpretation Comments Calcium Level (test code = 73313-0) 8.9 8.4-10.2 [facility] SouthPhosphorus ltzygrkmhxk9663-50-35 06:00:00 * Test Item Value Reference Range Interpretation Comments Phosphorus Level (test code = KFB1636) 4.3 2.3-4.7 [facility]westerum or plasma magnesium measurement (mass/volume)2020-03-15 06:00:00* Test Item Value Reference Range Interpretation Comments Magnesium Level (test code = 97713-5) 1.5 1.3-2.1 [facility]westerum or plasma total bilirubin measurement (mass/volume)2020-03-15 06:00:00* Test Item Value Reference Range Interpretation Comments Total Bilirubin (test code = 1975-2) 0.6 0.2-1.2 [facility] SouthFluoroscopic procedure less than one hour zvslidzq7026-61-15 06:00:00* Test Item Value Reference Range Interpretation Comments Aspartate Amino Transf (AST/SGOT) (test code = Aspartate Amino Transf (AST/SGOT)) 34 5-34 [facility]westerum or plasma alanine aminotransferase measurement (enzymatic activity/volume)2020-03-15 06:00:00* Test Item Value Reference Range Interpretation Comments Alanine Aminotransferase (ALT/SGPT) (test code = 1742-6) 53 0-55 [facility]westerum or plasma protein measurement (mass/volume)2020-03-15 06:00:00* Test Item Value Reference Range Interpretation Comments Total Protein (test code = 2885-2) 6.3 6.5-8.1 [facility]westerum or plasma albumin measurement (mass/volume)2020-03-15 06:00:00* Test Item Value Reference Range Interpretation Comments Albumin (test code = 1751-7) 2.9 3.5-5.0 [facility] SouthPlasma globulin measurement (mass/volume) 2020-03-15 06:00:00* Test Item Value Reference Range Interpretation Comments Globulin (test code = 44861-8) 3.4 2.3-3.5 [facility]westerum or plasma albumin/globulin mass qjvit7048-20-21 06:00:00* Test Item Value Reference Range Interpretation Comments Albumin/Globulin Ratio (test code = 1759-0) 0.9 0.8-2.0 [facility]westerum or plasma alkaline phosphatase measurement (enzymatic activity/volume)2020-03-15 06:00:00* Test Item Value Reference Range Interpretation Comments Alkaline Phosphatase (test code = 6768-6) 69 40-150 [facility]westerum or plasma lipase measurement (enzymatic activity/volume)2020-03-15 06:00:00* Test Item Value Reference Range Interpretation Comments Lipase (test code = 3040-3) 22 8-78 [facility] Northwesterum or plasma hepatitis A virus IgM antibody detection by koueuhsshwx8399-89-62 06:00:00* Test Item Value Reference Range Interpretation Comments Hepatitis A IgM Antibody (test code = 52608-9) Negative Negativ e [facility]westerum or plasma hepatitis B virus surface antigen detection by zfeokorrzsg0094-35-00 06:00:00* Test Item Value Reference Range Interpretation Comments Hepatitis B Surface Antigen (test code = 5196-1) Negative Negat jaun [facility]westerum or plasma hepatitis B virus core IgM antibody detection by kjsppnelyiu1001-40-98 06:00:00* Test Item Value Reference Range Interpretation Comments Hepatitis B Core IgM Antibody (test code = 69035-4) Negative Ne gative [facility]westerum hepatitis C virus antibody mrmgusuva3022-78-79 06:00:00* Test Item Value Reference Range Interpretation Comments Hepatitis C Antibody (test code = 63358-2) <0.1 0.0-0.9 Negative: < 0.8 Indeterminate: 0.8 - 0.9 Positive: > 0.9 The CDC recommends that a positive HCV antibody result be followed up with a HCV Nucleic Acid Amplification test (459843).Performed at: [facility] [address] [place] [address] [id number] Director: Yaw Herrera MD, Phone: [phone] [facility] XRAY LINE PLACEMENT 2020-03-14 00:36:00 [facility] [address] [address] Patient Name: NEEL PRIETO MR #: [id number] : 1970 Age/Sex: 49/F Req #: [id number] Adm Physician: ANGEL PERLA MD Ordered by: ANGEL PERLA MD Report #: [id number] Location: MED/SURG2 Room/Bed: [facility] Procedure: [id number] DX/CHEST X RAY LINE PLACEMENT Exam Date: 03/13/20 Exam Time: 22 58 REPORT STATUS: Signed EXAMINA TION: CHEST XRAY LINE PLACEMENT INDICATION: PICC line placement, verify position COMPARISON: Chest x-ray 7 07/23/2020 22:02 FIND INGS: TUBES and LINES: The right upper extremity PICC tip is at the luna perior cavoatrial junction, ideal. LUNGS: Normal lung volumes. Lungs ar e clear. No consolidations. PLEURA: No pleural effusion or pneumothorax. HEART AND MEDIASTINUM: The cardiomediastinal silhouette is unremarkable. BONES AND SOFT TISSUES: No acute osseous lesion. Soft tissues are un remarkable. UPPER ABDOMEN: No free air under the diaphragm. IMPRES ARJUN: The right upper extremity PICC tip is at the superior cavoatrial selene ction, ideal. Signed by: Foster Frazier DO on 03/14/2020 12:38 AM Dictated By: FOSTER FRAZIER DO Transcribed By: YAMILETH on 03/14/2037 COPY TO: ANGEL LEDBETETR AM, MD CHEST XRAY LINE [id number] 22:34:00 [id number] [address] Patient Name: NEEL PRIETO MR #: [id number] : 1970 Age/Sex: 49/F Req #: [id number] Adm Physician: AGNEL PERLA MD Ordered by: ANGEL PERLA MD Report #: [id number] Location: MED/SURG2 Ro /Bed: [facility] Procedure: [id number] DX/CHEST X RAY LINE PLACEMENT Exam Date: 03/13/20 Exam Time: 22 00 REPORT STATUS: Signed EXAMINA TION: CHEST XRAY LINE PLACEMENT INDICATION: Right upper extremity PICC placement, verify position COMPARISON: Abdominal CT 03/12/2020 FINDINGS: TUBES and LINES: New right upper extremity PICC, tip ter minates in the superior aspect of the right atrium. LUNGS: Low lung volu mes. Lungs are clear. No consolidations. PLEURA: No pleural effusion or pneumothorax. HEART AND MEDIASTINUM: The cardiomediastinal silhouette is u nremarkable. BONES AND SOFT TISSUES: No acute osseous lesion. Soft ti ssues are unremarkable. UPPER ABDOMEN: No free air under the diaphragm. IMPRESSION: New right upper extremity PICC, tip terminates in the superior aspect of the right atrium. Signed by: Foster Frazier DO on 03/13/2020 10:34 PM Dictated By: FOSTER FRAZIER DO Electronically Mayra d By: FOSTER FRAZIER DO on 03/13/202233 Transcribed By: YAMILETH on 03/13/202233 COPY TO: ANGEL PERLA MD Serum or plasma triglyceride measurement (mass/volume)2020-03-13 05:40:00* Test Item Value Reference Range Interpretation Comments Triglycerides Level (test code = 2571-8) 273 0-149 [facility] [id number] 08:26:00 [facility] [address] [address] Patient Name: NEEL PRIETO MR #: [id number] : 1970 Age/Sex: 49/F Req #: [id number] Adm Physician: ANGEL PERLA MD Ordered by: CHAGO NOLEN MD Report #: [id number] Location: MED/SURG2 Room/Bed: [facility] Procedure: [id number] CT/CT ABDOMEN/PELVIS W Exam Date: 03/12/20 Exam Time: 809 REPORT STATUS: Signed EXAMINATI ON: CT of the abdomen and pelvis with contrast. TECHNIQUE: Spiral CT lorena ges of the abdomen and pelvis were performed from the lung bases to the lesser trochanters after the intravenous administration of 100 cc of Isovue 370. Ora l Gastrografin was also administered.. Coronal and sagittal reformatted images were obtained. COMPARISON: CT abdomen and pelvis without contrast 03/09/2020 CLINICAL HISTORY:Lower abdominal pain DISCUSSION: ABDOMEN/P SHARON: LOWER THORAX:Lung bases are unremarkable. No pleural effusion. HEPATOBILIARY: Hepatic parenchyma is again diffusely hypoattenuating compatible with steatosis. Mild hepatomegaly is again noted. No focal hepatic lesion. N o intra-or extrahepatic biliary ductal dilation. The gallbladder is unremar kable. SPLEEN: No splenomegaly or focal splenic lesion. PANCREAS: No focal masses or ductal dilatation. There is mild fat stranding adjacent to the pancreatic head and uncinate process for example on series 2 image 43. The pa ncreatic parenchyma enhances uniformly. ADRENALS: 1.1 cm hypoattenuating no dule in the medial limb of the left adrenal, average internal attenuation 60 H ounsfield units. On the comparison noncontrast examination, average internal a ttenuation was approximately 15-20 Hounsfield units. No right adrenal nodule. KIDNEYS/URETERS: 1.7 cm parenchymal hypoattenuating lesion in the right kid dion with average internal attenuation less than 20 Hounsfield units compatible with a cyst. No additional focal renal lesion. No hydronephrosis or calculi. PELVIC ORGANS/BLADDER: The urinary bladder is unremarkable. Uterus is ant eflexed with a 1.5 cm hypoattenuating lesion at the fundus presumably a fibroi d. The right ovary is not identified. As before, the left ovary is enlarged, m easuring approximately 4.4 cm AP x 3.4 cm transverse x 5.5 cm craniocaudal. Th ere is a 2.3 cm hypoattenuating structure within the medial aspect of the ovar y, average internal attenuation 15-20 Hounsfield units. There is no adjacent i nflammatory change. PERITONEUM/RETROPERITONEUM: No ascites or pneumoperiton eum. LYMPH NODES: No pelvic sidewall, retroperitoneal, or mesenteric lymp hadenopathy. VESSELS: Atherosclerotic calcification of the abdominal aorta and major branch vessels without aneurysmal dilatation. Portal vein, splenic v ein, and central superior mesenteric vein are patent. Ovarian venous patency c annot be assessed due to phase of scan; however, no perivenous inflammatory ch florin. GI TRACT: The large bowel is again notable for scattered descending a nd sigmoid colon diverticula without wall thickening or inflammatory change. S cattered diverticula are also noted along the ascending colon. The appendix is normal. There is mild fat stranding along the third and fourth portions of th e duodenum as well as the pancreatic head and uncinate process. BONES AND SOFT TISSUE: No osseous destructive lesions. No focal soft tissue abnormal ities. IMPRESSION: Findings suggest acute pancreatitis involving th e head and uncinate process, with inflammatory changes extending along the duo denal sweep. No evidence of parenchymal necrosis. Correlation with serum amyla se and lipase is suggested. Persistent nonspecific enlargement of the left ovary, with a 2.4 cm low-attenuation structure medially, likely representing a cyst possibly with hemorrhagic or proteinaceous component. No paraovarian inf lammation. 1.1 cm left adrenal nodule is indeterminate though statistically likely to represent an adenoma. Definitive characterization with nonemergent CT or MRI of the abdomen with and without contrast (adrenal mass protocol) is suggested. Additional findings include hepatic steatosis, large bowel diver ticulosis without findings of diverticulitis, uterine fundal fibroid, and athe rosclerotic vascular disease. Signed by: Dr. Sharlene Wadsworth M.D. on 2019 8:46 AM Dictated By: SHARLENE WADSWORTH MD 5 Transcribed By: YAMILETH on 03/12/20845 C OPY TO: CHAGO NOLEN MD Serum or plasma amylase measurement (enzymatic activity/volume)2020-03-12 04:50:00* Test Item Value Reference Range Interpretation Comments Amylase Level (test code = 1798-8) 30 25-125 [facility] [id number] 09:06:00 [place] [address] Patient Name: NEEL PRIETO MR #: [id number] : 1970 Age/Sex: 49/F Req #: [id number] Adm Physician: ANGEL PERLA MD Ordered by: SHARLENE KENNEDY MD Report #: [id number] Location: MED/SURG2 Room/Bed: [facility] Procedure: [id number] US/US PELV IS COMPLETE NON OB Exam Date: 03/09/20 Exam Time: 15 36 REPORT STATUS: Signed Exam : Pelvic ultrasound. History: Pelvic pain Comparison: CT abdomen and pelvis of 03/09/2020, Pelvic ultrasound of earlier the same day. Findings: Transabdominal and endovaginal sonographic evaluation of the pelvis. The uter us is anteverted in position, measuring 7.9 x 4.0 x 4.7cm. Endometrial stripe thickness is 2 millimeters. Small uterine fibroids measure up to 1.8cm. Rep orted history of right oophorectomy. The left ovary measures up to 4.4 x 3.6 x 5.0cm. Arterial and venous Doppler flow is difficult to establish. No pelvic free fluid. Impression: Enlarged left ovary without readily detectable ar terial/venous waveforms. Although there is no cyst or mass present, torsion ca nnot be excluded by imaging. Signed by: Dalton Singleton MD on 03/10/2020 9:09 A M Dictated By: DALTON SINGLETON MD 8 Transcribed By: YAMILETH on 03/10/20908 COPY TO: Vivi KENNEDY MD US [id number] 09:06:00 [place] [address] Patient Name: NEEL PRIETO MR #: [id number] : 1970 Age/Sex: 49/F Req #: [id number] Adm Physician: ANGEL PERLA MD Ordered by: SHARLENE KENNEDY MD Report #: [id number] Location: MED/SURG2 Room/Bed: [facility] Procedure: [id number] US/US CRYSTAL SVAGINAL Exam Date: 03/09/20 Exam Time: 1536 REPORT STATUS: Signed Exam: Pelvic u ltrasound. History: Pelvic pain Comparison: CT abdomen and pelvis of 03/09/2020, Pelvic ultrasound of earlier the same day. Findings: Transabdo sergo and endovaginal sonographic evaluation of the pelvis. The uterus is ante verted in position, measuring 7.9 x 4.0 x 4.7cm. Endometrial stripe thickness is 2 millimeters. Small uterine fibroids measure up to 1.8cm. Reported hist ory of right oophorectomy. The left ovary measures up to 4.4 x 3.6 x 5.0cm. Ar terial and venous Doppler flow is difficult to establish. No pelvic free fluid . Impression: Enlarged left ovary without readily detectable arterial/michelle ous waveforms. Although there is no cyst or mass present, torsion cannot be ex cluded by imaging. Signed by: Dalton Singleton MD on 03/10/2020 9:09 AM D ictated By: DALTON SINGLETON MD 0 909 Transcribed By: YAMILETH on 03/10/20 0909 COPY TO: SHARLENE KENNEDY MD US PELVIC DOPPLER [id number] 09:06:00 [place] [address] Patient Name: NEEL PRIETO MR #: [id number] : 1970 Age/Sex: 49/F Req #: [id number] Adm Physician: ANGEL PERLA MD Ordered by: SHARLENE KENNEDY MD Report #: [id number] Location: MED/SURG Room/Bed: [facility] Procedure: [id number] US/US PELV IC DOPPLER LTD Exam Date: 03/09/20 Exam Time: 1536 REPORT STATUS: Signed Exam: Pe lvic ultrasound. History: Pelvic pain Comparison: CT abdomen and pel vis of 03/09/2020, Pelvic ultrasound of earlier the same day. Findings: Tra nsabdominal and endovaginal sonographic evaluation of the pelvis. The uterus i s anteverted in position, measuring 7.9 x 4.0 x 4.7cm. Endometrial stripe thic kness is 2 millimeters. Small uterine fibroids measure up to 1.8cm. Reporte d history of right oophorectomy. The left ovary measures up to 4.4 x 3.6 x 5.0 cm. Arterial and venous Doppler flow is difficult to establish. No pelvic free fluid. Impression: Enlarged left ovary without readily detectable arteri al/venous waveforms. Although there is no cyst or mass present, torsion cannot be excluded by imaging. Signed by: Dalton Singleton MD on 03/10/2020 9:09 AM Dictated By: DALTON SINGLETON MD 8 COPY TO: SHARLENE KENNEDY MD Fluoroscopic procedure less than one hour [id number] 05:30:00* Test Item Value Reference Range Interpretation Comments Hemoglobin A1c Percent (test code = Hemoglobin A1c Percent) 10.4 4.0-7.0 [facility] cholesterol measurement (mass/volume)2020-03-10 05:30:00* Test Item Value Reference Range Interpretation Comments Cholesterol Level (test code = 2093-3) 249 0-199 Less than 200 mg/dL Low [id number] - 239 mg/dL Borderline [id number] m g/dl and greater High Risk [facility] plasma cholesterol in HDL measurement (mass/volume) 2020-03-10 05:30:00* Test Item Value Reference Range Interpretation Comments HDL Cholesterol (test code = 2085-9) 26 40-60 [facility] plasma total cholesterol/cholesterol in HDL mass [id number] 05:30:00* Test Item Value Reference Range Interpretation Comments Cholesterol/HDL Ratio (test code = 9830-1) 9.6 3.0-3.6 [facility] plasma thyrotropin measurement by detection limit <= 0.005 miu/l (units/volume)2020-03-10 05:30:00* Test Item Value Reference Range Interpretation Comments Thyroid Stimulating Hormone (TSH) (test code = 38911-8) 1.503 0.350-4.940 [facility] plasma conjugated bilirubin measurement (mass/volume)2020-03-09 14:20:00* Test Item Value Reference Range Interpretation Comments Direct Bilirubin (test code = 19773-6) < 0.1 0.0-0.5 [facility] than one hour [id number] 12:55:00* Test Item Value Reference Range Interpretation Comments Coronavirus (PCR) (test code = Coronavirus (PCR)) NOT DETECTED NOTD ETECTED SARS-COV-2 (COVID19), HIGHRISK, RT-PCRNegative results do not preclude SARS-CoV- 2 infection and should not be used as the sole basis for patient management deci sions. Negative results must be combined with clinical observations, patient his tory, and epidemiological information. Optimum specimen types and timing for pea k viral levels during infections caused by SARS-CoV-2 have not been determined. Collection of multiple specimens ot types of specimens may be necessary to detec t virus. Improper specimen collection and handling, sequence variability under p rimers/probes, or organism present below the limit of detection may lead to fals e negative results. Positive and negative predictive values of testing are highl y dependent on prevalance. False negative test results are more likely when prev alence is high.The expected result is negative (not detected).The SARS-CoV-2 mary t is intended for the qualitative detection of nucleic acid from SARS-CoV-2 in n asopharyngeal and oropharyngeal swab samples from patients who meet COVID-19 cli nical and or epidemiological criteria. For lower respiratory tract specimens, th e assay is submitted for authoriztion by FDA under an Emergency Use Authorizatio n (EUA). Testing methodology is real time RT-PCR. If received as separate collec tion devices, nasopharygeal and oropharyngeal specimens are combined for analysi s. Additional specimens may be split to a separate accession for analysi and rep orting as this test includes a single unit of service.Test results must be corre lated with clinical presentation and evaluated in the context of other laborator y and epidemiologic data. Test performance can be affected because the epidemiol ogy and clinical spectrum of infection caused by SARS-CoV-2 is not fully known. For example, the optimum types of specimens to collect and when during the cours e of infection these specimens are most likely to contain detectable viral RNA m ay not be known.This test has not been Food and Drug Administration (FDA) cleare d or approved and has been authorized by FDA under an Emergency Use Authorizatio n (EUA). The test is only authorized for the duration of the declaration that ci rcumstances exist justifying the authorization of emergency use of in vitro diag nostic tests for detection and/or diagnosis of SARS-CoV-2 under section 564(b) o f the Act, 21 U.S.C. section 360bbb-3(b)(1), unless the authorization is termina sharon or revoked sooner. [facility] are certified under the C linical Laboratory Improvement Amendments of 1988 (CLIA), 42 U.S.C. section 263a , to perform high complexity tests.Testing performed by [facility] [id number] [place], [place] [id number] Director: Soto Powell M.D.CLIA # [id number] [facility] PELVIC [facility]ER [id number] 09:58:00 [place] [address] Patient Name: NEEL PRIETO MR #: [id number] : 1970 Age/Sex: 49/F Req #: [id number] Adm Physician: Ordered by: CATRACHO HOLLY MD Report #: [id number] [facility] Room/Bed: Procedure: [id number] HOPD/US H OPD PELVIC DOPPLER LTD Exam Date: 03/09/20 Exam Time : 09 REPORT STATUS: Signed ADDENDUM #1 Of note, there is no cyst or mass associated with the left ovary. Signed by: Dalotn Singleton MD on 03/09/2020 11:19 AM ORIGINAL REPORT Exam: Pelvic ultrasound. History: En larged left ovary Comparison: CT abdomen and pelvis of 03/09/2020 Findi ngs: Transabdominal and endovaginal sonographic evaluation of the pelvis. The uterus is anteverted in position, measuring 8.2 x 4.3 x 7[address] ripe thickness is 4 millimeters. The right ovary is not well-visualized due to overlying bowel gas.. The left ovary measures up to 3.8 x 4.6 x 3.5 cm. Arter ial and venous Doppler flow is difficult to establish. No pelvic free fluid. Impression: Enlarged left ovary with no readily detectable arterial/venous waveforms. This may represent ovarian torsion in the proper clinical setting. The above findings were discussed with Dr. HOLLY on 03/09/2020 9:58 AM, wh o responded indicating that the communication was understood. Signed by: Dalton Singleton MD on 03/09/2020 10:04 AM Dictated By: DALTON SINGLETON MD [facility] Signed By: DALTON SINGLETON MD on 03/09/20 1119 Transcribed By: YAMILETH on 03/22 1004 COPY TO: CATRACHO HOLLY MD CT ABD/PEL WO CONTRAST-HOPD 2020-03-09 07:35:00 [place] [address] Patient Name: NEEL PRIETO MR #: [id number] : 1970 Age/Sex: 49/F Req #: [id number] Adm Physician: Ordered by: RANDEE FOOTE Report #: [id number] Location: [facility] Room/Bed: Procedure: [id number] HOPD/CT AB D/PEL WO CONTRAST-HOPD Exam Date: 03/09/20 Exam Time : 655 REPORT STATUS: Signed EXA M: CT Abdomen and Pelvis WITHOUT contrast INDICATION: Abdominal/back pa in COMPARISON: None. TECHNIQUE: Abdomen and pelvis were scanned utilizing a multidetector helical scanner from the lung base to the pubic symphysis witho ut administration of IV contrast. Absence of intravenous contrast decreases se nsitivity for detection of focal lesions and vascular pathology. Coronal and s agittal reformations were obtained. Routine protocol was performed. IV CONTRAST: None ORAL CONTRAST: None COMPLICATIONS: None RADIATION DOSE: Total DLP: 1082 mGy*cm Estimated effective do se: (DLP x 0.015 x size factor) mSv CTDIvol has been reviewed. It is belo w the limits set by the Radiation Protocol Committee (RPC). Dose modula tion, iterative reconstruction, and/or weight based adjustment of the mA/kV wa s utilized to reduce the radiation dose to as low as reasonably achievable. FINDINGS: LINES and TUBES: None. LOWER THORAX: Coronary artery ca lcifications. HEPATOBILIARY: Enlarged hypodense liver. No focal hepati c lesions. No biliary ductal dilation. GALLBLADDER: No radio-opaque ston es or sludge. No wall thickening. SPLEEN: No splenomegaly. PANCREAS: No focal masses or ductal dilatation. ADRENALS: No adrenal nodules KIDNEYS/URETERS: No hydronephrosis. No solid mass lesions. Round fluid dens ity in the mid right kidney is likely a simple cyst. No stones. GI TRACT: No abnormal distention, wall thickening, or evidence of bowel obstruction. Appendix is normal. Colonic diverticuli. PELVIC ORGANS/BLADDER: Enlarge d left ovary, measures up to 6.4 cm. Urinary bladder unremarkable. Suspect sma ll uterine fibroid. LYMPH NODES: No lymphadenopathy. VESSELS: Minimal arterial calcifications. PERITONEUM / RETROPERITONEUM: No free air or f luid. BONES: Minimal degenerative changes. SOFT TISSUES: Unremarka ble. IMPRESSION: 1. Left ovarian enlargement, recommend pelvic ultrasound. Suspect uterine fibroids. 2. Hepatomegaly with hepati c steatosis. 3. Colonic diverticulosis without diverticulitis. 4. Co ronary artery calcifications. Signed by: Foster Frazier DO on 03/09/2020 7:4 0 AM Dictated By: FOSTER FRAZIER DO 9 Transcribed By: YAMILETH on 03/09/20739 HOSE OPERATOR Y TO: RANDEE FOOTE
== END 2020-03-31 18:50 | disposition home or self-care (01) ==
LOC: FSED 17:53
DX: M54.41 Lumbago with sciatica, right side (principal); W17.89XA Other fall from one level to another, initial encounter; M54.16 Radiculopathy, lumbar region; I10 Essential (primary) hypertension; E11.9 Type 2 diabetes mellitus without complications; E78.5 Hyperlipidemia, unspecified; F41.9 Anxiety disorder, unspecified; G47.30 Sleep apnea, unspecified
CPT/HCPCS: 99283; J1885